=== PATIENT | male | born 1995 | race African-American/Black ===

== ENCOUNTER 2020-03-26 15:09 | Emergency (ER) | payer OTHER ==
--- NOTE | 2020-03-26 15:38 | PDOC ---
Rapid Medical Evaluation Time Seen by Provider: 03/26/20 15:21 Medical Evaluation: 03/26/20 15:31 I performed a brief in-person evaluation of this patient. Pt is a 24 y/o male with complaint of left sided body numbness after waking up this morning. He had an endoscopy yesterday and woke up feeling like this today. He also developed b/l subconjunctival hemorrhages. He was seen at [facility] yesterday and was given eye drops for subconjunctival hemorrhages. Pt states he feels like he is off balance. He has tingling in his L hand and foot. He had a painful headache this morning upon waking. Took Tylenol which resolved headache but it came right back. Pertinent physical exam findings: b/l subconjunctival hemorrhages appreciated. No ataxia, no slurred speech, no facial droop. Strength 5/5 b/l UE. I have ordered the following: stroke protocol Patient to proceed to ED for further evaluation. Discharge Disposition - Diagnosis Numbness and tingling - Referrals - Patient Instructions - Post Discharge Activity
[2020-03-26 15:42] VITALS: BMI 39.3
[2020-03-26] MEDS ORDERED: SODIUM CHLORIDE 1,000 ML IV SCH (15:45)
--- OUTSIDE RECORDS SUMMARY | 2020-03-26 15:51 | XMS ---
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 Cente r in Serum or Plasma </content>90 IU/L<content styleCode="Italic s"> (38-126 IU/L)</content> Albumin 3.5-5.0 <content [facility] [Mass/volume] in styleCode="Bold"> Flaco hs Serum or Plasma Albumin Medical </content>4.3 Center G/DL<content styleCode="Italic s"> (3.5-5.0 G/DL)</content> ID Date Data Source HematologyRou.[id number] 03/10/2020 10:45:00 AM EDT Jose Luis [facility] 0400 Name Value Range Interpretation Description Data Sup porting Code Source(s) Document(s ) Hematocrit 41.0-53. <content [facility] [Volume 0 styleCode="Sherron Mauros Fraction] of ">Hematocrit Medical Blood by </content>45.5 Center Automated count %<content styleCode="Ital ics"> (41.0-53.0 %)</content> Hemoglobin 13.5-17. <content [facility] [Mass/volume] in 5 styleCode="Bold Kath Blood ">Hemoglobin Medical </content>14.5 Center G/DL<content styleCode="Ital ics"> (13.5-17.5 G/DL)</content> Leukocytes 4.4-11.0 <content [facility] [#/volume] in styleCode="Bold Kath Blood by ">White Blood Medical Automated count Cell Count Center </content>5.48 KCUMM<content styleCode="Ital ics"> (4.4-11.0 KCUMM)</content > Erythrocytes 4.4-5.9 <content [facility] [#/volume] in styleCode="Bold Kath Blood by ">Red Blood Medical Automated count Cell Count Center </content>5.67 MCUMM<content styleCode="Ital ics"> (4.4-5.9 MCUMM)</content > Erythrocyte 11.5-14. <content [facility] distribution 5 styleCode="Sherron [facility] width [Ratio] by ">Red Cell Medical Automated count Distribution Center Width </content>13.4 %<content styleCode="Ital ics"> (11.5-14.5 %)</content> Erythrocyte mean 32.0-37. Below low normal <content [facility] corpuscular 0 styleCode="Bold Kath hemoglobin ">Mean Corpus. Medical concentration Hgb Center [Mass/volume] by Concentration Automated count (MCHC) </content>31.9 G/DL L<content styleCode="Ital ics"> (32.0-37.0 G/DL)</content> Erythrocyte mean 26.0-34. Below low normal <content [facility] corpuscular 0 styleCode="Bold Kath hemoglobin ">Mean Medical [Entitic mass] Corposcular Center by Automated Hemoglobin count </content>25.6 PG L<content styleCode="Ital ics"> (26.0-34.0 PG)</content> Erythrocyte mean 80.0-100 <content [facility] corpuscular .0 styleCode="Bold Kath volume [Entitic ">Mean Medical volume] by Corpuscular Center Automated count Volume </content>80.2 FL<content styleCode="Ital ics"> (80.0-100.0 FL)</content> Platelets 130-400 <content [facility] [#/volume] in styleCode="Bold Kath Blood by ">Platelet Medical Automated count Count Center </content>218 KCUMM<content styleCode="Ital ics"> (130-400 KCUMM)</content > UNK 1.6-7.3 <content [facility] styleCode="Bold Kath ">Neutrophil Medical Count Center </content>2.82 KCUMM<content styleCode="Ital ics"> (1.6-7.3 KCUMM)</content > UNK 1.0-4.8 <content [facility] styleCode="Bold Kath ">Lymphocyte Medical Count Center </content>2.04 KCUMM<content styleCode="Ital ics"> (1.0-4.8 KCUMM)</content > Platelet mean 8.0-11.0 <content [facility] volume [Entitic styleCode="Bold Kath volume] in Blood ">Mean Platelet Medical by Automated Volume Center count </content>10.2 FL<content styleCode="Ital ics"> (8.0-11.0 FL)</content> Lymphocytes 24.0-44. <content [facility] [#/volume] in 0 styleCode="Bold Kath Blood by ">Lymphocyte Medical Automated count </content>37.2 Center %<content styleCode="Ital ics"> (24.0-44.0 %)</content> Neutrophils 36-66 <content [facility] [#/volume] in styleCode="Bold Kath Blood by ">Neutrophil Medical Automated count </content>51.6 Center %<content styleCode="Ital ics"> (36-66 %)</content> Eosinophils 0-5.0 <content [facility] [#/volume] in styleCode="Bold Kath Blood by ">Eosinophil Medical Automated count </content>2.0 Center %<content styleCode="Ital ics"> (0-5.0 %)</content> UNK 0.2-0.9 <content [facility] styleCode="Bold Kath ">Monocyte Medical Count Center </content>0.45 KCUMM<content styleCode="Ital ics"> (0.2-0.9 KCUMM)</content > Monocytes 3.0-10.0 <content [facility] [#/volume] in styleCode="Bold Kath Blood by ">Monocyte Medical Automated count </content>8.2 Center %<content styleCode="Ital ics"> (3.0-10.0 %)</content> UNK 0.0-0.6 <content [facility] styleCode="Bold Kath ">Eosinophil Medical Count Center </content>0.11 KCUMM<content styleCode="Ital ics"> (0.0-0.6 KCUMM)</content > UNK 0 <content [facility] styleCode="Bold Kath ">Nucleated Red Medical Blood Cell Center </content>0.0 /100<content styleCode="Ital ics"> (0 /100)</content> Basophils 0.0-1.0 <content [facility] [#/volume] in styleCode="Bold Kath Blood by ">Basophil Medical Automated count </content>0.5 Center %<content styleCode="Ital ics"> (0.0-1.0 %)</content> UNK 0-0.1 <content [facility] styleCode="Bold Kath ">Immature Medical Granulocyte Center Count </content>0.03 KCUMM<content styleCode="Ital ics"> (0-0.1 KCUMM)</content > UNK 0.0-0.3 <content [facility] styleCode="Bold Kath ">Basophil Medical Count Center </content>0.03 KCUMM<content styleCode="Ital ics"> (0.0-0.3 KCUMM)</content > UNK 0.0 <content [facility] styleCode="Bold Kath ">Nucleated Red Medical Blood Cell Center Count </content>0.00 KCUMM<content styleCode="Ital ics"> (0.0 KCUMM)</content > UNK < 1 <content [facility] styleCode="Bold Kath ">Immature Medical Granulocyte Center Ratio </content>0.5 %<content styleCode="Ital ics"> (< 1 %)</content> ID Date Data Source GFR(Creatinine).[id number] 03/10/2020 10:45:00 AM EDT [facility] 0-0400 Name Value Range Interpretation Code Description Data Aury rce(s) Supporting Document(s ) UNK > 60 <content [facility] styleCode="Bold"> Medical Cent er EGFR </content>95 GFR<content styleCode="Italic s"> (> 60 GFR)</content> ID Date Data Source CHMROUTINECCDA.[id number] 03/10/2020 10:45:00 AM EDT [facility] -0400 Name Value Range Interpretation Description Data Sup porting Code Source(s) Document(s ) UNK >= 1.0 <content [facility] styleCode="Bold Medical ">AG Ratio Center </content>1.4 <content styleCode="Ital ics"> (>= 1.0 )</content> UNK 30-110 <content [facility] styleCode="Bold Medical ">Amylase Center </content>68 IU/L<content styleCode="Ital ics"> (30-110 IU/L)</content> Lipase 23-300 <content [facility] [Enzymatic styleCode="Bold Medical activity/vo ">Lipase Center lume] in </content>44 Serum or IU/L<content Plasma styleCode="Ital ics"> (23-300 IU/L)</content> UNK 2.3-3.5 <content [facility] styleCode="Bold Medical ">Globulin Center </content>3.0 G/DL<content styleCode="Ital ics"> (2.3-3.5 G/DL)</content> Protein 6.3-8.2 <content [facility] [Mass/volum styleCode="Bold Medical e] in Serum ">Total Protein Center or Plasma </content>7.3 G/DL<content styleCode="Ital ics"> (6.3-8.2 G/DL)</content> ID Date Data Source [facility].[id number] 03/10/2020 10:45:00 AM EDT [facility] Name Value Range Interpretation Description Data Sup porting Code Source(s) Document(s ) Sodium 137-145 <content [facility] [Moles/volume] in styleCode="Bold"> Tho phs Serum or Plasma Sodium Medical </content>139 Center MEQ/L<content styleCode="Italic s"> (137-145 MEQ/L)</content> Carbon dioxide, 22-30 <content [facility] total styleCode="Bold"> Kath [Moles/volume] in Carbon Dioxide Medical Serum or Plasma </content>28 Center MEQ/L<content styleCode="Italic s"> (22-30 MEQ/L)</content> Potassium 3.5-5.3 <content [facility] [Moles/volume] in styleCode="Bold"> Tho phs Serum or Plasma Potassium Medical </content>4.2 Center MEQ/L<content styleCode="Italic s"> (3.5-5.3 MEQ/L)</content> Chloride 98-107 <content [facility] [Moles/volume] in styleCode="Bold"> Tho phs Serum or Plasma Chloride Medical </content>105 Center MEQ/L<content styleCode="Italic s"> (98-107 MEQ/L)</content> UNK 9-20 <content [facility] styleCode="Bold"> Kath BUN </content>13 Medical MG/DL<content Center styleCode="Italic s"> (9-20 MG/DL)</content> Glucose 74-106 Above high <content [facility] [Mass/volume] in normal styleCode="Bold"> Flaco hs Serum or Plasma Glucose Medical </content>107 Center MG/DL H<content styleCode="Italic s"> (74-106 MG/DL)</content> Creatinine 0.5-1.3 <content [facility] [Mass/volume] in styleCode="Bold"> Flaco hs Serum or Plasma Creatinine Medical </content>1.2 Center MG/DL<content styleCode="Italic s"> (0.5-1.3 MG/DL)</content> Calcium 8.4-10. <content [facility] [Mass/volume] in 2 styleCode="Bold"> Flaco hs Serum or Plasma Calcium Medical </content>9.3 Center MG/DL<content styleCode="Italic s"> (8.4-10.2 MG/DL)</content> Aspartate 17-59 <content [facility] aminotransferase styleCode="Bold"> Flaco hs [Enzymatic Aspartate Medical activity/volume] Aminotransferase Center in Serum or Plasma (AST) </content>26 IU/L<content styleCode="Italic s"> (17-59 IU/L)</content> UNK > 60 <content [facility] styleCode="Bold"> Kath EGFR </content>95 Medical GFR<content Center styleCode="Italic s"> (> 60 GFR)</content> Alkaline 38-126 <content [facility] phosphatase styleCode="Bold"> Kath [Enzymatic Alkaline Medical activity/volume] Phosphatase (ALP) Cente r in Serum or Plasma </content>90 IU/L<content styleCode="Italic s"> (38-126 IU/L)</content> Albumin 3.5-5.0 <content [facility] [Mass/volume] in styleCode="Bold"> Flaco hs Serum or Plasma Albumin Medical </content>4.3 Center G/DL<content styleCode="Italic s"> (3.5-5.0 G/DL)</content> Alanine 7-50 <content [facility] aminotransferase styleCode="Bold"> Flaco hs [Enzymatic Alanine Medical activity/volume] Aminotransferase Center in Serum or Plasma (ALT) </content>34 IU/L<content styleCode="Italic s"> (7-50 IU/L)</content> Bilirubin.total 0.2-1.3 <content [facility] [Mass/volume] in styleCode="Bold"> Flaco hs Serum or Plasma Bilirubin Total Medical </content>0.4 Center MG/DL<content styleCode="Italic s"> (0.2-1.3 MG/DL)</content> ID Date Data Source CHMROUTINECCDA.[id number] 03/04/2020 03:34:00 PM EDT [facility] -0400 Name Value Range Interpretation Description Data Sup porting Code Source(s) Document(s ) Lipase 23-300 <content [facility] [Enzymatic styleCode="Bold Medical activity/vo ">Lipase Center lume] in </content>51 Serum or IU/L<content Plasma styleCode="Ital ics"> (23-300 IU/L)</content> UNK 30-110 <content [facility] styleCode="Bold Medical ">Amylase Center </content>68 IU/L<content styleCode="Ital ics"> (30-110 IU/L)</content> ID Date Data Source Liver 01/25/2020 12:20:00 PM EDT [facility] Profile.[id number] Name Value Range Interpretation Description Data Sup porting Code Source(s) Document(s ) Aspartate 17-59 <content [facility] aminotransferase styleCode="Bold"> Flaco hs [Enzymatic Aspartate Medical activity/volume] Aminotransferase Center in Serum or Plasma (AST) </content>25 IU/L<content styleCode="Italic s"> (17-59 IU/L)</content> Albumin 3.5-5.0 <content [facility] [Mass/volume] in styleCode="Bold"> Flaco hs Serum or Plasma Albumin Medical </content>4.1 Center G/DL<content styleCode="Italic s"> (3.5-5.0 G/DL)</content> Bilirubin.total 0.2-1.3 <content [facility] [Mass/volume] in styleCode="Bold"> Flaco hs Serum or Plasma Bilirubin Total Medical </content>0.3 Center MG/DL<content styleCode="Italic s"> (0.2-1.3 MG/DL)</content> Alkaline 38-126 <content [facility] phosphatase styleCode="Bold"> Kath [Enzymatic Alkaline Medical activity/volume] Phosphatase (ALP) Cente r in Serum or Plasma </content>87 IU/L<content styleCode="Italic s"> (38-126 IU/L)</content> Alanine 7-50 <content [facility] aminotransferase styleCode="Bold"> Flaco hs [Enzymatic Alanine Medical activity/volume] Aminotransferase Center in Serum or Plasma (ALT) </content>40 IU/L<content styleCode="Italic s"> (7-50 IU/L)</content> ID Date Data Source LIPID.[id number] 01/25/2020 12:20:00 PM EDT [facility] Name Value Range Interpretation Description Data Sup porting Code Source(s) Document(s ) Cholesterol -<200 Above high normal <content [facility] [Mass/volume] in styleCode="Can Kath Serum or Plasma d">Cholesterol Medical </content>224 Center MG/DL H<content styleCode="Petra lics"> (-<200 MG/DL)</conten t> Triglyceride < 150 Above high normal <content [facility] [Mass/volume] in styleCode="Can Kath Serum or Plasma d">Triglycerid Medical Center </content>160 MG/DL H<content styleCode="Petra lics"> (< 150 MG/DL)</conten t> UNK < 100 Above high normal <content [facility] styleCode="Can Kath d">LDL-Cholest Medical carol Center </content>158 MG/DL H<content styleCode="Petra lics"> (< 100 MG/DL)</conten t> UNK > 60 Below low normal <content [facility] styleCode="Can Kath d">HDL- Medical Cholesterol Center </content>34 MG/DL L<content styleCode="Petra lics"> (> 60 MG/DL)</conten t> ID Date Data Source HematologyRou.[id number] 01/25/2020 12:20:00 PM [facility] Name Value Range Interpretation Description Data Sup porting Code Source(s) Document(s ) Hemoglobin 13.5-17. <content [facility] [Mass/volume] in 5 styleCode="Bold Kath Blood ">Hemoglobin Medical </content>14.2 Center G/DL<content styleCode="Ital ics"> (13.5-17.5 G/DL)</content> Erythrocytes 4.4-5.9 <content [facility] [#/volume] in styleCode="Bold Kath Blood by ">Red Blood Medical Automated count Cell Count Center </content>5.46 MCUMM<content styleCode="Ital ics"> (4.4-5.9 MCUMM)</content > Hematocrit 41.0-53. <content [facility] [Volume 0 styleCode="Bold Kath Fraction] of ">Hematocrit Medical Blood by </content>44.1 Center Automated count %<content styleCode="Ital ics"> (41.0-53.0 %)</content> Leukocytes 4.4-11.0 <content [facility] [#/volume] in styleCode="Bold Kath Blood by ">White Blood Medical Automated count Cell Count Center </content>6.68 KCUMM<content styleCode="Ital ics"> (4.4-11.0 KCUMM)</content > Erythrocyte mean 26.0-34. <content [facility] corpuscular 0 styleCode="Bold Kath hemoglobin ">Mean Medical [Entitic mass] Corposcular Center by Automated Hemoglobin count </content>26.0 PG<content styleCode="Ital ics"> (26.0-34.0 PG)</content> Erythrocyte 11.5-14. <content [facility] distribution 5 styleCode="Bold Kath width [Ratio] by ">Red Cell Medical Automated count Distribution Center Width </content>13.4 %<content styleCode="Ital ics"> (11.5-14.5 %)</content> Erythrocyte mean 32.0-37. <content [facility] corpuscular 0 styleCode="Bold Kath hemoglobin ">Mean Corpus. Medical concentration Hgb Center [Mass/volume] by Concentration Automated count (MCHC) </content>32.2 G/DL<content styleCode="Ital ics"> (32.0-37.0 G/DL)</content> Erythrocyte mean 80.0-100 <content [facility] corpuscular .0 styleCode="Bold Kath volume [Entitic ">Mean Medical volume] by Corpuscular Center Automated count Volume </content>80.8 FL<content styleCode="Ital ics"> (80.0-100.0 FL)</content> Neutrophils 36-66 <content [facility] [#/volume] in styleCode="Bold Kath Blood by ">Neutrophil Medical Automated count </content>56.7 Center %<content styleCode="Ital ics"> (36-66 %)</content> UNK 1.6-7.3 <content [facility] styleCode="Bold Kath ">Neutrophil Medical Count Center </content>3.78 KCUMM<content styleCode="Ital ics"> (1.6-7.3 KCUMM)</content > Platelets 130-400 <content [facility] [#/volume] in styleCode="Bold Kath Blood by ">Platelet Medical Automated count Count Center </content>241 KCUMM<content styleCode="Ital ics"> (130-400 KCUMM)</content > Platelet mean 8.0-11.0 <content [facility] volume [Entitic styleCode="Bold Kath volume] in Blood ">Mean Platelet Medical by Automated Volume Center count </content>10.9 FL<content styleCode="Ital ics"> (8.0-11.0 FL)</content> UNK 1.0-4.8 <content [facility] styleCode="Bold Kath ">Lymphocyte Medical Count Center </content>1.92 KCUMM<content styleCode="Ital ics"> (1.0-4.8 KCUMM)</content > Lymphocytes 24.0-44. <content [facility] [#/volume] in 0 styleCode="Bold Kath Blood by ">Lymphocyte Medical Automated count </content>28.7 Center %<content styleCode="Ital ics"> (24.0-44.0 %)</content> Monocytes 3.0-10.0 Above high <content [facility] [#/volume] in normal styleCode="Bold Kath Blood by ">Monocyte Medical Automated count </content>11.4 Center % H<content styleCode="Ital ics"> (3.0-10.0 %)</content> UNK 0.2-0.9 <content [facility] styleCode="Bold Kath ">Monocyte Medical Count Center </content>0.76 KCUMM<content styleCode="Ital ics"> (0.2-0.9 KCUMM)</content > Eosinophils 0-5.0 <content [facility] [#/volume] in styleCode="Bold Kath Blood by ">Eosinophil Medical Automated count </content>2.4 Center %<content styleCode="Ital ics"> (0-5.0 %)</content> UNK 0.0-0.6 <content [facility] styleCode="Bold Kath ">Eosinophil Medical Count Center </content>0.16 KCUMM<content styleCode="Ital ics"> (0.0-0.6 KCUMM)</content > Basophils 0.0-1.0 <content [facility] [#/volume] in styleCode="Bold Kath Blood by ">Basophil Medical Automated count </content>0.4 Center %<content styleCode="Ital ics"> (0.0-1.0 %)</content> UNK 0.0-0.3 <content [facility] styleCode="Bold Kath ">Basophil Medical Count Center </content>0.03 KCUMM<content styleCode="Ital ics"> (0.0-0.3 KCUMM)</content > UNK 0 <content [facility] styleCode="Bold Kath ">Nucleated Red Medical Blood Cell Center </content>0.0 /100<content styleCode="Ital ics"> (0 /100)</content> UNK 0.0 <content [facility] styleCode="Bold Kath ">Nucleated Red Medical Blood Cell Center Count </content>0.00 KCUMM<content styleCode="Ital ics"> (0.0 KCUMM)</content > UNK < 1 <content [facility] styleCode="Bold Kath ">Immature Medical Granulocyte Center Ratio </content>0.4 %<content styleCode="Ital ics"> (< 1 %)</content> UNK 0-0.1 <content [facility] styleCode="Bold Kath ">Immature Medical Granulocyte Center Count </content>0.03 KCUMM<content styleCode="Ital ics"> (0-0.1 KCUMM)</content > ID Date Data Source GFR(Creatinine).[id number] 01/25/2020 12:20:00 PM EDT [facility] 0-0400 Name Value Range Interpretation Code Description Data Aury rce(s) Supporting Document(s ) UNK > 60 <content [facility] styleCode="Bold"> Medical Cent er EGFR </content>95 GFR<content styleCode="Italic s"> (> 60 GFR)</content> ID Date Data Source CHMROUTJHOANCCDA.[id number] 01/25/2020 12:20:00 PM EDT [facility] -0400 Name Value Range Interpretation Description Data Sup porting Code Source(s) Document(s ) UNK >= 1.0 <content [facility] styleCode="Bold Medical ">AG Ratio Center </content>1.2 <content styleCode="Ital ics"> (>= 1.0 )</content> Protein 6.3-8.2 <content [facility] [Mass/volum styleCode="Bold Medical e] in Serum ">Total Protein Center or Plasma </content>7.4 G/DL<content styleCode="Ital ics"> (6.3-8.2 G/DL)</content> UNK 4.2-5.8 <content [facility] styleCode="Bold Medical ">Hemoglobin Center A1C </content>5.8 %<content styleCode="Ital ics"> (4.2-5.8 %)</content> UNK 2.3-3.5 <content [facility] styleCode="Bold Medical ">Globulin Center </content>3.3 G/DL<content styleCode="Ital ics"> (2.3-3.5 G/DL)</content> ID Date Data Source BMP.[id number] 01/25/2020 12:20:00 PM EDT [facility] Name Value Range Interpretation Description Data Sup porting Code Source(s) Document(s ) Chloride 98-107 <content [facility] [Moles/volume] in styleCode="Bold"> Tho [facility] Serum or Plasma Chloride Medical </content>105 Center MEQ/L<content styleCode="Italic s"> (98-107 MEQ/L)</content> Potassium 3.5-5.3 <content [facility] [Moles/volume] in styleCode="Bold"> Tho [facility] Serum or Plasma Potassium Medical </content>4.3 Center MEQ/L<content styleCode="Italic s"> (3.5-5.3 MEQ/L)</content> Sodium 137-145 <content [facility] [Moles/volume] in styleCode="Bold"> Tho [facility] Serum or Plasma Sodium Medical </content>138 Center MEQ/L<content styleCode="Italic s"> (137-145 MEQ/L)</content> Carbon dioxide, 22-30 <content [facility] total styleCode="Bold"> Kath [Moles/volume] in Carbon Dioxide Medical Serum or Plasma </content>27 Center MEQ/L<content styleCode="Italic s"> (22-30 MEQ/L)</content> Glucose 74-106 <content [facility] [Mass/volume] in styleCode="Bold"> Flaco hs Serum or Plasma Glucose Medical </content>100 Center MG/DL<content styleCode="Italic s"> (74-106 MG/DL)</content> Creatinine 0.5-1.3 <content [facility] [Mass/volume] in styleCode="Bold"> Flaco hs Serum or Plasma Creatinine Medical </content>1.2 Center MG/DL<content styleCode="Italic s"> (0.5-1.3 MG/DL)</content> UNK 9-20 <content [facility] styleCode="Bold"> Kath BUN </content>17 Medical MG/DL<content Center styleCode="Italic s"> (9-20 MG/DL)</content> Aspartate 17-59 <content [facility] aminotransferase styleCode="Bold"> Flaco hs [Enzymatic Aspartate Medical activity/volume] Aminotransferase Center in Serum or Plasma (AST) </content>25 IU/L<content styleCode="Italic s"> (17-59 IU/L)</content> UNK > 60 <content [facility] styleCode="Bold"> [facility] EGFR </content>95 Medical GFR<content Center styleCode="Italic s"> (> 60 GFR)</content> Calcium 8.4-10. <content [facility] [Mass/volume] in 2 styleCode="Bold"> Flaco hs Serum or Plasma Calcium Medical </content>9.6 Center MG/DL<content styleCode="Italic s"> (8.4-10.2 MG/DL)</content> Alanine 7-50 <content [facility] aminotransferase styleCode="Bold"> Flaco hs [Enzymatic Alanine Medical activity/volume] Aminotransferase Center in Serum or Plasma (ALT) </content>40 IU/L<content styleCode="Italic s"> (7-50 IU/L)</content> Alkaline 38-126 <content Saint phosphatase styleCode="Bold"> [facility] [Enzymatic Alkaline Medical activity/volume] Phosphatase (ALP) Cente r in Serum or Plasma </content>87 IU/L<content styleCode="Italic s"> (38-126 IU/L)</content> Bilirubin.total 0.2-1.3 <content [facility] [Mass/volume] in styleCode="Bold"> Flaco hs Serum or Plasma Bilirubin Total Medical </content>0.3 Center MG/DL<content styleCode="Italic s"> (0.2-1.3 MG/DL)</content> Albumin 3.5-5.0 <content [facility] [Mass/volume] in styleCode="Bold"> Flaco hs Serum or Plasma Albumin Medical </content>4.1 Center G/DL<content styleCode="Italic s"> (3.5-5.0 G/DL)</content> ID Date Data Source Urinalysis.[id number] 01/18/2020 09:05:00 PM EDT Jose Luis nt [facility] 0 Name Value Range Interpretation Description Data Sup porting Code Source(s) Document(s ) Color of Urine YELLOW <content Saint styleCode="Can Kath d">Color, Medical Urine Center </content>YELL OW <content styleCode="Petra lics"> (YELLOW )</content> Specific 1.015-1.02 <content Saint gravity of 5 styleCode="Can [place] Urine by Test d">Urine Medical strip Specific Center [place] </content>1.02 5 <content styleCode="Petra lics"> (1.015-1.025 )</content> UNK CLEAR <content Saint styleCode="Can Kath d">Urine Medical Clarity Center </content>SHAHEEN R <content styleCode="Petra lics"> (CLEAR )</content> UNK NEGATIVE <content Saint styleCode="Can Kath d">Urine Medical Bilirubin Center </content>NEGA TIVE <content styleCode="Petra lics"> (NEGATIVE )</content> Ketones NEGATIVE <content [facility] [Mass/volume] styleCode="Can Kath in Urine by d">Urine Medical Test strip Ketone Center </content>NEGA TIVE MG/DL<content styleCode="Petra lics"> (NEGATIVE MG/DL)</conten t> Glucose NEGATIVE <content [facility] [Mass/volume] styleCode="Can Kath in Urine by d">Urine Medical Test strip Glucose Center </content>NEGA TIVE MG/DL<content styleCode="Petra lics"> (NEGATIVE MG/DL)</conten t> Urobilinogen 0.2-1.0 <content Saint [Units/volume] styleCode="Can Kath in Urine by d">Urine Medical Test strip Urobilinogen Center </content>0.2 MG/DL<content styleCode="Petra lics"> (0.2-1.0 MG/DL)</conten t> pH of Urine by 4.5-8.0 <content Saint Test strip styleCode="Can Kath d">Urine pH Medical </content>7.0 Center <content styleCode="Petra lics"> (4.5-8.0 )</content> Hemoglobin NEGATIVE <content Saint [Presence] in styleCode="Can [place] Urine by Test d">Urine Blood Medical strip </content>NEGA Center TIVE <content styleCode="Petra lics"> (NEGATIVE )</content> Protein NEGATIVE <content Saint [Mass/volume] styleCode="Can [place] in Urine by d">Urine Medical Test strip Protein Center </content>NEGA TIVE MG/DL<content styleCode="Petra lics"> (NEGATIVE MG/DL)</conten t> Nitrite NEGATIVE <content Saint [Presence] in styleCode="Can [place] Urine by Test d">Urine Medical strip Nitrite Center </content>NEGA TIVE <content styleCode="Petra lics"> (NEGATIVE )</content> Leukocyte NEGATIVE <content [facility] esterase styleCode="Can [place] [Presence] in d">Urine Medical Urine by Test Leukocyte Center strip </content>NEGA TIVE <content styleCode="Petra lics"> (NEGATIVE )</content> ID Date Data Source HematologyRou.[id number] 01/18/2020 09:05:00 PM EDT [facility] 0400 Name Value Range Interpretation Description Data Sup porting Code Source(s) Document(s ) Leukocytes 4.4-11.0 <content Saint [#/volume] in styleCode="Bold Kath Blood by ">White Blood Medical Automated count Cell Count Center </content>5.77 KCUMM<content styleCode="Ital ics"> (4.4-11.0 KCUMM)</content > Erythrocytes 4.4-5.9 <content Saint [#/volume] in styleCode="Bold Kath Blood by ">Red Blood Medical Automated count Cell Count Center </content>5.19 MCUMM<content styleCode="Ital ics"> (4.4-5.9 MCUMM)</content > Erythrocyte mean 32.0-37. <content Saint corpuscular 0 styleCode="Bold [facility] hemoglobin ">Mean Corpus. Medical concentration Hgb Center [Mass/volume] by Concentration Automated count (MCHC) </content>32.8 G/DL<content styleCode="Ital ics"> (32.0-37.0 G/DL)</content> Erythrocyte mean 80.0-100 <content Saint corpuscular .0 styleCode="Bold Kath volume [Entitic ">Mean Medical volume] by Corpuscular Center Automated count Volume </content>81.1 FL<content styleCode="Ital ics"> (80.0-100.0 FL)</content> Erythrocyte mean 26.0-34. <content [facility] corpuscular 0 styleCode="Bold Kath hemoglobin ">Mean Medical [Entitic mass] Corposcular Center by Automated Hemoglobin count </content>26.6 PG<content styleCode="Ital ics"> (26.0-34.0 PG)</content> Hematocrit 41.0-53. <content Saint [Volume 0 styleCode="Bold Kath Fraction] of ">Hematocrit Medical Blood by </content>42.1 Center Automated count %<content styleCode="Ital ics"> (41.0-53.0 %)</content> Hemoglobin 13.5-17. <content [facility] [Mass/volume] in 5 styleCode="Bold Kath Blood ">Hemoglobin Medical </content>13.8 Center G/DL<content styleCode="Ital ics"> (13.5-17.5 G/DL)</content> UNK 0.0 <content Saint styleCode="Bold Kath ">Nucleated Red Medical Blood Cell Center Count </content>0.00 KCUMM<content styleCode="Ital ics"> (0.0 KCUMM)</content > Platelet mean 8.0-11.0 <content Saint volume [Entitic styleCode="Bold Kath volume] in Blood ">Mean Platelet Medical by Automated Volume Center count </content>10.5 FL<content styleCode="Ital ics"> (8.0-11.0 FL)</content> Erythrocyte 11.5-14. <content [facility] distribution 5 styleCode="Bold Kath width [Ratio] by ">Red Cell Medical Automated count Distribution Center Width </content>13.2 %<content styleCode="Ital ics"> (11.5-14.5 %)</content> UNK 0 <content Saint styleCode="Bold Kath ">Nucleated Red Medical Blood Cell Center </content>0.0 /100<content styleCode="Ital ics"> (0 /100)</content> Platelets 130-400 <content Saint [#/volume] in styleCode="Bold Kath Blood by ">Platelet Medical Automated count Count Center </content>225 KCUMM<content styleCode="Ital ics"> (130-400 KCUMM)</content > ID Date Data Source GFR(Creatinine).[id number] 01/18/2020 09:05:00 PM EDT [facility] 0-0400 Name Value Range Interpretation Code Description Data Aury rce(s) Supporting Document(s ) UNK > 60 <content [facility] styleCode="Bold"> Medical Cent er EGFR </content>95 GFR<content styleCode="Italic s"> (> 60 GFR)</content> ID Date Data Source CardiacMarkers.[id number] 01/18/2020 09:05:00 PM EDT [facility] -0400 Name Value Range Interpretation Description Data Sup porting Code Source(s) Document(s ) Troponin < 0.034 <content Saint I.cardiac styleCode="Bold Kath [Mass/volume ">Troponin I Medical ] in Serum </content>< Center or Plasma 0.012 NG/ML<content styleCode="Ital ics"> (< 0.034 NG/ML)</content > ID Date Data Source BMP.[id number] 01/18/2020 09:05:00 PM EDT [facility] Name Value Range Interpretation Description Data Sup porting Code Source(s) Document(s ) Chloride 98-107 <content Saint [Moles/volume] styleCode="Can Kath in Serum or d">Chloride Medical Plasma </content>106 Center MEQ/L<content styleCode="Petra lics"> (98-107 MEQ/L)</conten t> Potassium 3.5-5.3 <content [facility] [Moles/volume] styleCode="Can Kath in Serum or d">Potassium Medical Plasma </content>4.3 Center MEQ/L<content styleCode="Petra lics"> (3.5-5.3 MEQ/L)</conten t> Sodium 137-145 <content [facility] [Moles/volume] styleCode="Can Kath in Serum or d">Sodium Medical Plasma </content>137 Center MEQ/L<content styleCode="Petra lics"> (137-145 MEQ/L)</conten t> UNK 9-20 <content Saint styleCode="Can Kath d">BUN Medical </content>17 Center MG/DL<content styleCode="Petra lics"> (9-20 MG/DL)</conten t> Creatinine 0.5-1.3 <content [facility] [Mass/volume] styleCode="Can Kath in Serum or d">Creatinine Medical Plasma </content>1.2 Center MG/DL<content styleCode="Petra lics"> (0.5-1.3 MG/DL)</conten t> Carbon 22-30 <content Saint dioxide, total styleCode="Can Kath [Moles/volume] d">Carbon Medical in Serum or Dioxide Center Plasma </content>25 MEQ/L<content styleCode="Petra lics"> (22-30 MEQ/L)</conten t> UNK > 60 <content [facility] styleCode="Can Kath d">EGFR Medical </content>95 Center GFR<content styleCode="Petra lics"> (> 60 GFR)</content> Glucose 74-106 <content [facility] [Mass/volume] styleCode="Can Kath in Serum or d">Glucose Medical Plasma </content>106 Center MG/DL<content styleCode="Petra lics"> (74-106 MG/DL)</conten t> Calcium 8.4-10.2 <content [facility] [Mass/volume] styleCode="Can Kath in Serum or d">Calcium Medical Plasma </content>9.3 Center MG/DL<content styleCode="Petra lics"> (8.4-10.2 MG/DL)</conten t> ID Date Data Source Urinalysis.[id number] 11/28/2019 02:26:00 AM EDT [facility] 0 Name Value Range Interpretation Description Data Sup porting Code Source(s) Document(s ) Color of Urine YELLOW <content Saint styleCode="Can [place] d">Color, Medical Urine Center </content>YELL OW <content styleCode="Petra lics"> (YELLOW )</content> UNK CLEAR <content Saint styleCode="Can [place] d">Urine Medical Clarity Center </content>SHAHEEN R <content styleCode="Petra lics"> (CLEAR )</content> Glucose NEGATIVE <content Saint [Mass/volume] styleCode="Can [place] in Urine by d">Urine Medical Test strip Glucose Center </content>NEGA TIVE MG/DL<content styleCode="Petra lics"> (NEGATIVE MG/DL)</conten t> pH of Urine by 4.5-8.0 <content Saint Test strip styleCode="Can [place] d">Urine pH Medical </content>8.0 Center <content styleCode="Petra lics"> (4.5-8.0 )</content> Specific 1.015-1.02 <content [facility] gravity of 5 styleCode="Can [place] Urine by Test d">Urine Medical strip Specific Center [place] </content>1.02 0 <content styleCode="Petra lics"> (1.015-1.025 )</content> Hemoglobin NEGATIVE <content Saint [Presence] in styleCode="Can [place] Urine by Test d">Urine Blood Medical strip </content>NEGA Center TIVE <content styleCode="Petra lics"> (NEGATIVE )</content> UNK NEGATIVE <content Saint styleCode="Can [place] d">Urine Medical Bilirubin Center </content>NEGA TIVE <content styleCode="Petra lics"> (NEGATIVE )</content> Ketones NEGATIVE <content Saint [Mass/volume] styleCode="Can [place] in Urine by d">Urine Medical Test strip Ketone Center </content>NEGA TIVE MG/DL<content styleCode="Petra lics"> (NEGATIVE MG/DL)</conten t> Leukocyte NEGATIVE <content [facility] esterase styleCode="Can [place] [Presence] in d">Urine Medical Urine by Test Leukocyte Center strip </content>NEGA TIVE <content styleCode="Petra lics"> (NEGATIVE )</content> Urobilinogen 0.2-1.0 <content Saint [Units/volume] styleCode="Can Kath in Urine by d">Urine Medical Test strip Urobilinogen Center </content>0.2 MG/DL<content styleCode="Petra lics"> (0.2-1.0 MG/DL)</conten t> Nitrite NEGATIVE <content [facility] [Presence] in styleCode="Can Kath Urine by Test d">Urine Medical strip Nitrite Center </content>NEGA TIVE <content styleCode="Petra lics"> (NEGATIVE )</content> Protein NEGATIVE <content Saint [Mass/volume] styleCode="Can Kath in Urine by d">Urine Medical Test strip Protein Center </content>NEGA TIVE MG/DL<content styleCode="Petra lics"> (NEGATIVE MG/DL)</conten t> ID Date Data Source HematologyRou.[id number] 11/28/2019 02:26:00 AM EDT Jose Luis [facility] 0400 Name Value Range Interpretation Description Data Sup porting Code Source(s) Document(s ) Hemoglobin 13.5-17. <content Saint [Mass/volume] in 5 styleCode="Bold Kath Blood ">Hemoglobin Medical </content>14.3 Center G/DL<content styleCode="Ital ics"> (13.5-17.5 G/DL)</content> Leukocytes 4.4-11.0 <content Saint [#/volume] in styleCode="Bold Kath Blood by ">White Blood Medical Automated count Cell Count Center </content>6.93 KCUMM<content styleCode="Ital ics"> (4.4-11.0 KCUMM)</content > Hematocrit 41.0-53. <content Saint [Volume 0 styleCode="Bold [facility] Fraction] of ">Hematocrit Medical Blood by </content>43.7 Center Automated count %<content styleCode="Ital ics"> (41.0-53.0 %)</content> Erythrocytes 4.4-5.9 <content Saint [#/volume] in styleCode="Bold Kath Blood by ">Red Blood Medical Automated count Cell Count Center </content>5.42 MCUMM<content styleCode="Ital ics"> (4.4-5.9 MCUMM)</content > Erythrocyte mean 80.0-100 <content [facility] corpuscular .0 styleCode="Bold Kath volume [Entitic ">Mean Medical volume] by Corpuscular Center Automated count Volume </content>80.6 FL<content styleCode="Ital ics"> (80.0-100.0 FL)</content> Erythrocyte 11.5-14. <content Saint distribution 5 styleCode="Bold Kath width [Ratio] by ">Red Cell Medical Automated count Distribution Center Width </content>13.3 %<content styleCode="Ital ics"> (11.5-14.5 %)</content> Erythrocyte mean 26.0-34. <content [facility] corpuscular 0 styleCode="Bold Kath hemoglobin ">Mean Medical [Entitic mass] Corposcular Center by Automated Hemoglobin count </content>26.4 PG<content styleCode="Ital ics"> (26.0-34.0 PG)</content> Erythrocyte mean 32.0-37. <content [facility] corpuscular 0 styleCode="Bold Kath hemoglobin ">Mean Corpus. Medical concentration Hgb Center [Mass/volume] by Concentration Automated count (MCHC) </content>32.7 G/DL<content styleCode="Ital ics"> (32.0-37.0 G/DL)</content> Platelets 130-400 <content Saint [#/volume] in styleCode="Bold Kath Blood by ">Platelet Medical Automated count Count Center </content>257 KCUMM<content styleCode="Ital ics"> (130-400 KCUMM)</content > UNK 0.0 <content Saint styleCode="Bold Kath ">Nucleated Red Medical Blood Cell Center Count </content>0.00 KCUMM<content styleCode="Ital ics"> (0.0 KCUMM)</content > UNK 0 <content Saint styleCode="Bold Kath ">Nucleated Red Medical Blood Cell Center </content>0.0 /100<content styleCode="Ital ics"> (0 /100)</content> Platelet mean 8.0-11.0 <content Saint volume [Entitic styleCode="Bold Kath volume] in Blood ">Mean Platelet Medical by Automated Volume Center count </content>10.4 FL<content styleCode="Ital ics"> (8.0-11.0 FL)</content> ID Date Data Source GFR(Creatinine).[id number] 11/28/2019 02:26:00 AM EDT [facility] 0-0400 Name Value Range Interpretation Code Description Data Aury rce(s) Supporting Document(s ) UNK > 60 <content [facility] styleCode="Bold"> Medical Cent er EGFR </content>105 GFR<content styleCode="Italic s"> (> 60 GFR)</content> ID Date Data Source CHMROUTINECCDA.[id number] 11/28/2019 02:26:00 AM EDT [facility] -0400 Name Value Range Interpretation Description Data Sup porting Code Source(s) Document(s ) UNK 30-110 <content Saint [facility] styleCode="Bold Medical ">Amylase Center </content>61 IU/L<content styleCode="Ital ics"> (30-110 IU/L)</content> Lipase 23-300 <content [facility] [Enzymatic styleCode="Bold Medical activity/vo ">Lipase Center lume] in </content>53 Serum or IU/L<content Plasma styleCode="Ital ics"> (23-300 IU/L)</content> ID Date Data Source CardiacMarkers.[id number] 11/28/2019 02:26:00 AM EDT [facility] -0400 Name Value Range Interpretation Description Data Sup porting Code Source(s) Document(s ) Troponin < 0.034 <content Saint I.cardiac styleCode="Bold Kath [Mass/volume ">Troponin I Medical ] in Serum </content>< Center or Plasma 0.012 NG/ML<content styleCode="Ital ics"> (< 0.034 NG/ML)</content > ID Date Data Source [facility].[id number] 11/28/2019 02:26:00 AM EDT [facility] Center Name Value Range Interpretation Description Data Sup porting Code Source(s) Document(s ) Sodium 137-145 <content Saint [Moles/volume] styleCode="Can Kath in Serum or d">Sodium Medical Plasma </content>138 Center MEQ/L<content styleCode="Petra lics"> (137-145 MEQ/L)</conten t> Potassium 3.5-5.3 <content [facility] [Moles/volume] styleCode="Can Kath in Serum or d">Potassium Medical Plasma </content>4.2 Center MEQ/L<content styleCode="Petra lics"> (3.5-5.3 MEQ/L)</conten t> Chloride 98-107 <content [facility] [Moles/volume] styleCode="Can Kath in Serum or d">Chloride Medical Plasma </content>104 Center MEQ/L<content styleCode="Petra lics"> (98-107 MEQ/L)</conten t> UNK 9-20 <content Saint styleCode="Can Kath d">BUN Medical </content>16 Center MG/DL<content styleCode="Petra lics"> (9-20 MG/DL)</conten t> Creatinine 0.5-1.3 <content Saint [Mass/volume] styleCode="Can Kath in Serum or d">Creatinine Medical Plasma </content>1.1 Center MG/DL<content styleCode="Petra lics"> (0.5-1.3 MG/DL)</conten t> Glucose 74-106 <content Saint [Mass/volume] styleCode="Can Kath in Serum or d">Glucose Medical Plasma </content>106 Center MG/DL<content styleCode="Petra lics"> (74-106 MG/DL)</conten t> Carbon 22-30 <content Saint dioxide, total styleCode="Can Kath [Moles/volume] d">Carbon Medical in Serum or Dioxide Center Plasma </content>28 MEQ/L<content styleCode="Petra lics"> (22-30 MEQ/L)</conten t> UNK > 60 <content Saint styleCode="Can Kath d">EGFR Medical </content>105 Center GFR<content styleCode="Petra lics"> (> 60 GFR)</content> Calcium 8.4-10.2 <content [facility] [Mass/volume] styleCode="Can Kath in Serum or d">Calcium Medical Plasma </content>9.3 Center MG/DL<content styleCode="Petra lics"> (8.4-10.2 MG/DL)</conten t> ID Date Data Source [id number] 08/21/2019 10:25:00 AM EDT [facility] [id number] Corporation Name Value Range Interpretation Description Data Sup porting Code Source(s) Document(s ) Echo 2D [id number] [facility] <td> 08/21/2019 [facility] M-Mode [id number] 10:25</td><td> [facility] [id number] Echo 2D M-Mode [facility] (TTE) Non-Invasive Complete (TTE) [facility] Cardiology </td><td> Laboratory [id number] Advanced
Physician [facility]
[id number] [place]
[address] Phone [phone] Non-Invasive Adult
Echocardiogram Cardiology Report Name:
Kaleigh VICTOR JR.
Study Advanced Date:
08/21/2019 Physician 10:25 AM [facility]
BP: 113/70 [address] : [address] 1995
[place], [place] Gender:
Male Age: 23 [address] yrs
Phone [phone] Height: 73 in
Account [phone] Fax Number:
[phone] Weight: 274 lb
BSA: 2.5 m2 Adult Patient Echocardiogram Location: CDU Report Reason For
Study: SYNCOPE Name: VALENTE [facility] COLLAPSE JAKE LOONEY Ordering Physician: Study Date: CHETNA, 08/21/2019 NIKUNJ 10:25 AM Performed By:
Cyndi Torres, [facility] Interpretation BP: Summary The 113/70 mmHg left ventricle
is normal in : size. There 1995 is normal left ventricular Gender: wall thickness. Male Left
Age: ventricular 23 yrs systolic function is Height: 73 normal. The in left
ventricular Account Number: wall motion is [id number] normal. Left ventricular Weight: 274 lb ejection
fraction is BSA: 2.5 m2 60%. The right
ventricular Patient systolic Location: CDU function is
normal. Reason For Trivial Study: SYNCOPE tricuspid valve & COLLAPSE regurgitation. There was

insufficient Ordering tricuspid Physician: jayjay BASILIO, detected to NIKUNJ calculate
pulmonary Performed By: artery systolic Cyndi Torres, pressure. [facility] ICD-10

Syncope and Interpretation collapse - R55. Summary Procedure
A complete The left two-dimensional ventricle is transthoracic normal in size. echocardiogram was performed
There (2D, M-mode, is normal left spectral and ventricular color flow wall thickness. Doppler). (35446). Study
Left quality is ventricular adequate. systolic Patient refused function is Definity echo normal. contrast.
Left Ventricle The left The left ventricular ventricle is wall motion is normal in size. normal. There is normal
left Left ventricular ventricular wall ejection thickness. Left fraction is ventricular 60%. systolic
The function is right normal. Left ventricular ventricular systolic ejection function is fraction is normal. 60%. The left
ventricular Trivial wall motion is tricuspid valve normal. regurgitation. Right Ventricle
The right There was ventricle is insufficient normal in size. tricuspid There is normal regurgitation right detected to ventricular calculate wall thickness.
The right pulmonary ventricular artery systolic systolic pressure. function is

normal. ICD-10 Left Atrium
Indexed left Syncope and atrial volume collapse - R55. is normal. LA ESV Index (BP)

- 21.5 ml/m2. Procedure Right Atrium
Normal right A complete atrial size. two-dimensional Aortic Valve transthoracic The aortic echocardiogram valve is was performed trileaflet. (2D, There is no
aortic M-mode, stenosis. No spectral and aortic color flow regurgitation. Doppler). Mitral (03211). Study Valve quality is Structurally
normal mitral adequate. valve. There is Patient refused no mitral valve Definity echo stenosis. No contrast. significant

mitral Left regurgitation. Ventricle Tricuspid
Valve The left Structurally ventricle is normal normal in size. tricuspid There is normal valve. There is left no tricuspid ventricular stenosis. wall Trivial
tricuspid valve thickness. Left regurgitation. ventricular Pulmonic systolic Valve The function is pulmonic valve normal. Left is not well ventricular visualized.
There is no ejection pulmonic valve fraction is stenosis. No 60%. The left significant ventricular pulmonic wall motion is regurgitation. normal. Aorta The aortic root is

normal in size. Right The visualized Ventricle area of
ascending aorta The right is normal in ventricle is size. The normal in size. visualized area There is normal of aortic arch right is normal in ventricular size.
Pulmonary wall Artery There thickness. The was right insufficient ventricular tricuspid systolic regurgitation function is detected to normal. calculate

pulmonary Left Atrium artery systolic
pressure. Indexed left Venous The atrial volume inferior vena is normal. LA cava is normal ESV Index (BP) in size. - 21.5 ml/m2. Pericardium There is no

pericardial Right Atrium effusion.
MMode/2D Normal right Measurements & atrial size. Calculations IVSd: 0.86 cm

Aortic Valve LVIDd: 5.3 cm
LV The aortic mass(C)d: valve is LVIDs: 3.5 cm trileaflet. There is no 158.9 grams aortic LVPWd: 0.82 cm stenosis. No LV aortic mass(C)dI:
64.6 grams/m2 regurgitation.

Mitral Valve
_ Ao root Structurally diam: 2.8 cm normal mitral Asc Aorta valve. There is diam: 2.9 cm no mitral valve LVOT diam: 2.0 stenosis. No cm LA
dimension: 3.5 significant cm Ao mitral arch diam: 3.0 regurgitation. cm

Tricuspid Valve
_ Left Structurally atrial volume normal (2c): IVC tricuspid Diameter: 1.7 valve. There is cm RA no tricuspid area (4c): stenosis. 48.0 ml
Trivial tricuspid valve 15.9 cm2 regurgitation. Left atrial volume (4c):

53.2 ml Pulmonic Valve
The pulmonic valve is not well _ Left visualized. atrial volume There is no index Left pulmonic valve atrial volume
index (2c): stenosis. 19.5 ml/m2 No significant (4c): 21.6 pulmonic ml/m2 regurgitation. Doppler Measurements

& Aorta Calculations
The MV E max leonard: aortic root is 90.7 cm/sec normal in size. MV dec time: The visualized 0.20 sec Lat area of E' leonard: 5.3 ascending aorta cm/sec MV A max leonard: 66.9
is cm/sec normal in size. The visualized area of aortic arch is normal in size. _ Med E' leonard:

6.1 cm/sec Pulmonary E/E' Lateral: Artery 17.0 AV v
max: 169.2 There was cm/sec E/E' insufficient Medial: 15.0 tricuspid AV max PG: regurgitation 11.5 mmHg detected to calculate
pulmonary artery systolic _ LVOT max pressure. P.6 mmHg

PA max PG: Venous 4.7 mmHg RV
S leonard: 12.7 The inferior cm/sec LVOT v vena cava is max: 162.8 normal in size. cm/sec

Pericardium
There is no _ E/E' pericardial Average: 16.0 effusion.

MMode/2D Measurements & Calculations
_ IVSd: 0.86 cm Reading Physician: LVIDd: 5.3 cm Hunter Overton LV MD 08/21/2019 mass(C)d: 11:29 AM
LVIDs: 3.5 cm 158.9 grams
LVPWd: 0.82 cm LV mass(C)dI:
64.6 grams/m2
_

Ao root diam: 2.8 cm Asc Aorta diam: 2.9 cm LVOT diam: 2.0 cm
LA dimension: 3.5 cm Ao arch diam: 3.0 cm
_

Left atrial volume (2c): IVC Diameter: 1.7 cm RA area (4c):
48.0 ml 15.9 cm2
Left atrial volume (4c):
53.2 ml
_

Left atrial volume index Left atrial volume index
(2c): 19.5 ml/m2 (4c): 21.6 ml/m2

Doppler Measurements & Calculations
MV E max leonard: 90.7 cm/sec MV dec time: 0.20 sec Lat E' leonard: 5.3 cm/sec
MV A max leonard: 66.9 cm/sec

__
Med E' leonard: 6.1 cm/sec E/E' Lateral: 17.0 AV v max: 169.2 cm/sec
E/E' Medial: 15.0 AV max P.5 mmHg

_
LVOT max P.6 mmHg PA max P.7 mmHg RV S leonard: 12.7 cm/sec
LVOT v max: 162.8 cm/sec
_

E/E' Average: 16.0

_

Reading Physician:
Hunter Overton MD 08/21/2019 11:29 AM

</td> ID Date Data Source [id number] 08/21/2019 08:16:00 AM EDT [facility] [id number] Corporation Name Value Range Interpretation Description Data Sup porting Code Source(s) Document(s ) Head (PACSIMAGE <td> 08/21/2019 [place] [facility]&W ) 08:16</td><td> County /Out Final Result Head With&W/Out Health Ca re Contra Name: VALENTE [facility]-MRA JAKE LOONEY MRN: </td><td><paragr [id number] Sex: M aph : 1995 styleCode="Itali Location: M cs">(PACSIMAGE Admitting Physician: Requesting )</paragraph><br Physician: ERVIS />
Final XHIHANI Result Exam: MRA HEAD

C+/C- 08/21/2019 Name: VALENTE LOONEY, 10:02 JAKE CLINICAL
MRN: STATEMENT: "Rule [id number] Sex: M out carotid
dissection". : COMPARISON: MR 1995 brain dated Location: 08/20/2019.
TECHNIQUE: MRA Admitting Head: MR Physician: angiography was
performed using a Requesting 3-D Physician: ERVIS hiyr-np-[id number] XHIHANI sequence. Post

contrast coronal Exam: MRA HEAD images were C+/C- 08/21/2019 acquired. MRA 10:02 neck: Axial 2-D

and 3-D CLINICAL rntv-fn-ypiifx STATEMENT: "Rule and coronal out carotid postcontrast dissection". imaging was obtained from the

level of the COMPARISON: MR aortic arch to brain dated the [place] of 08/20/2019. White.

CONTRAST: 13 cc TECHNIQUE: Gadavist.
FINDINGS: MR MRA Head: MR angiography angiography was bcjuul-xj-Dpgieg: performed using There is no a 3-D evidence of bubs-wa-lvzpkv proximal branch
occlusion or sequence. Post high-grade contrast coronal proximal stenosis images were to the visualized acquired. vessels of the
[place] of MRA neck: Axial White. No 2-D and 3-D evidence of rvpx-fo-nrkelr aneurysm. Please and coronal note that postcontrast aneurysms less
than 5 mm may or imaging was may not be obtained from detected with the level of the routine MR aortic arch to angiography the technique.
[place] MR angiography of of White. the neck:

Origins of the CONTRAST: 13 great vessels of cc Gadavist. the neck are grossly patent.

There is no FINDINGS: occlusion or

high-grade MR angiography stenosis within ccnout-pb-Aofirq the visualized : vertebral
There arteries.. There is no evidence is no evidence of of proximal hemodynamically branch occlusion significant or high-grade stenosis at the
common carotid proximal artery stenosis to the bifurcations visualized bilaterally as vessels of the per NASCET [place] of criteria.
IMPRESSION: White. No MRA Head: No evidence of evidence of aneurysm. Please proximal branch note that occlusion or high aneurysms less grade proximal
stenosis. than 5 mm may MRA Neck: No or may not be evidence of detected with hemodynamically routine MR significant angiography stenosis at the
common carotid technique. artery

bifurcations MR bilaterally as angiography of per NASCET the neck: criteria..
Origins of the Resident great vessels of Radiologist: the neck are Tashi Santiago MD grossly patent. Resident
Radiologist There is no Attending occlusion or Radiologist: high-grade Grupo Gomez MD stenosis within Finalizing the visualized Radiologist:
Grupo Gomez MD vertebral Transcribed Date: arteries.. There 08/21/2019 10:48 is no evidence Finalized Date: of 08/21/2019 11:11 hemodynamically
significant stenosis at the common carotid artery bifurcations
bilaterally as per NASCET criteria.

IMPRESSION:

MRA Head:
No evidence of proximal branch occlusion or high grade proximal
stenosis.

MRA Neck:
No evidence of hemodynamically significant stenosis at the common
carotid artery bifurcations bilaterally as per NASCET criteria..

< br/>

<b r/> Resident Radiologist: Tashi Santiago MD Resident Radiologist
Attending Radiologist: Grupo Gomez MD
Finalizing Radiologist: Grupo Gomez MD
Transcribed Date: 08/21/2019 10:48
Finalized Date: 08/21/2019 11:11

</td> Neck (PACSIMAGE <td> 08/21/2019 [place] [facility] ) 08:24</td><td> County /Out Final Result Neck With&W/Out Health Ca re Contra Name: VALENTE [facility]-MRA [facility] st-JAKE ST JR. MRN: </td><td><paragr [id number] Sex: M aph : 1995 styleCode="Itali Location: cs">(PACSIMAGE Admitting Physician: HAMIDA MAYER )</paragraph><br Requesting />
Final Physician: DARI Result QUINONES Exam:

MRA NECK C+/C- Name: VALENTE LOONEY, 08/21/2019 10:02 JAKE CLINICAL
MRN: STATEMENT: "Rule [id number] Sex: M out carotid
dissection". : COMPARISON: MR 1995 brain dated Location: 08/20/2019.
TECHNIQUE: MRA Admitting Head: MR Physician: HAMIDA angiography was LEYLA performed using a
3-D Requesting lvie-jg-riyqgx Physician: DARI sequence. Post QUINONES contrast coronal

images were Exam: MRA NECK acquired. MRA C+/C- 08/21/2019 neck: Axial 2-D 10:02 and 3-D

osbb-qd-indifa CLINICAL and coronal STATEMENT: "Rule postcontrast out carotid imaging was dissection". obtained from the level of the

aortic arch to COMPARISON: MR the [place] of brain dated White. 08/20/2019. CONTRAST: 13 cc

Gadavist. TECHNIQUE: FINDINGS: MR
angiography MRA Head: MR pqfvll-zc-Wtbkks: angiography was There is no performed using evidence of a 3-D proximal branch keck-hk-maqyvk occlusion or
high-grade sequence. Post proximal stenosis contrast coronal to the visualized images were vessels of the acquired. [place] of
White. No MRA neck: Axial evidence of 2-D and 3-D aneurysm. Please qfcz-bi-txfdkf note that and coronal aneurysms less postcontrast than 5 mm may or
may not be imaging was detected with obtained from routine MR the level of the angiography aortic arch to technique. the MR angiography of
[place] the neck: of White. Origins of the

great vessels of CONTRAST: 13 the neck are cc Gadavist. grossly patent. There is no

occlusion or FINDINGS: high-grade

stenosis within MR angiography the visualized avhnft-gn-Chssyp vertebral : arteries.. There
There is no evidence of is no evidence hemodynamically of proximal significant branch occlusion stenosis at the or high-grade common carotid
artery proximal bifurcations stenosis to the bilaterally as visualized per NASCET vessels of the criteria. [place] of IMPRESSION:
MRA Head: No White. No evidence of evidence of proximal branch aneurysm. Please occlusion or high note that grade proximal aneurysms less stenosis.
MRA Neck: No than 5 mm may evidence of or may not be hemodynamically detected with significant routine MR stenosis at the angiography common carotid
artery technique. bifurcations

bilaterally as MR per NASCET angiography of criteria.. the neck:
Resident Origins of the Radiologist: great vessels of Tashi Santiago MD the neck are Resident grossly patent. Radiologist
Attending There is no Radiologist: occlusion or Grupo Gomez MD high-grade Finalizing stenosis within Radiologist: the visualized Grupo Gomez MD
Transcribed Date: vertebral 08/21/2019 10:48 arteries.. There Finalized Date: is no evidence 08/21/2019 11:11 of hemodynamically
significant stenosis at the common carotid artery bifurcations
bilaterally as per NASCET criteria.

IMPRESSION:

MRA Head:
No evidence of proximal branch occlusion or high grade proximal
stenosis.

MRA Neck:
No evidence of hemodynamically significant stenosis at the common
carotid artery bifurcations bilaterally as per NASCET criteria..

< br/>

<b r/> Resident Radiologist: Tashi Santiago MD Resident Radiologist
Attending Radiologist: Grupo Gomez MD
Finalizing Radiologist: Grupo Gomez MD
Transcribed Date: 08/21/2019 10:48
Finalized Date: 08/21/2019 11:11

</td> ID Date Data Source [id number] 08/21/2019 07:21:00 AM EDT [facility] [id number] Corporation Name Value Range Interpretation Description Data Sup porting Code Source(s) Document(s ) Erythrocytes 5.41 m/mm3 4.00-5 <td> 08/21/2019 [facility] r [#/volume] in .20 07:21</td><td> [facility] Blood m/mm3 RBC Health Care </td><td><jaki Corporation raph styleCode="Bold "> 5.41 H </paragraph>
(4.00-5.20) m/mm3 </td> Leukocytes 7.6 k/mm3 4.5-10 <td> 08/21/2019 [place] [#/volume] in .8 07:21</td><td> [facility] Blood by k/mm3 WBC </td><td> Health Care Automated count Corporation 7.6
(4.5-10.8) k/mm3 </td> Erythrocyte 82.4 fL 80.0-9 <td> 08/21/2019 [place] mean 5.0 fL 07:21</td><td> [facility] corpuscular MCV </td><td> Health Care volume [Entitic Corporation volume] by 82.4 Automated count
(80.0-95.0) fL </td> Hematocrit 44.6 % 36.0-4 <td> 08/21/2019 [place] [Volume 6.0 % 07:21</td><td> County Fraction] of HCT </td><td> Health Care Blood by Corporation Automated count 44.6
(36.0-46.0) % </td> Hemoglobin 14.0 g/dL 12.3-1 <td> 08/21/2019 [place] [Mass/volume] 4.9 07:21</td><td> [facility] in Blood g/dL HGB </td><td> [facility] 14.0
(12.3-14.9) g/dL </td> Erythrocyte 25.9 pg 27.0-3 <td> 08/21/2019 [place] mean 1.5 pg 07:21</td><td> [facility] corpuscular [facility] hemoglobin </td><td><[employer] [Entitic mass] raph by Automated styleCode="Bold count "> 25.9 L </paragraph>
(27.0-31.5) pg </td> Erythrocyte 31.4 % 32.0-3 <td> 08/21/2019 [place] mean 6.0 % 07:21</td><td> [facility] corpuscular [facility] Care hemoglobin </td><td><[employer] concentration raph [Mass/volume] styleCode="Bold in Blood from "> Fetus by 31.4 Automated count L </paragraph>
(32.0-36.0) % </td> Platelets 226 k/mm3 160-41 <td> 08/21/2019 [place] [#/volume] in 0 07:21</td><td> [facility] Blood by k/mm3 Platelet Count Health Care Automated count </td><td> [facility] 226
(160-410) k/mm3 </td> Platelet mean 10.0 fL 9.8-12 <td> 08/21/2019 [facility] r volume [Entitic .8 fL 07:21</td><td> County volume] in MPV </td><td> Health Care Blood by [facility] Automated count 10.0
(9.8-12.8) fL </td> Erythrocyte 13.7 % 11.5-1 <td> 08/21/2019 [place] distribution 4.5 % 07:21</td><td> County width [Entitic RDW </td><td> Health Car e volume] by [facility] have [facility]! Automated count 13.7
(11.5-14.5) % </td> Glucose 88 mg/dL 70-105 <td> 08/21/2019 [place] [Mass/volume] mg/dL 07:21</td><td> County in Blood Glucose-Serum Health Care </td><td> [facility]! 88
(70-105) mg/dL </td> Sodium 140 mEq/L 135-14 <td> 08/21/2019 [place] [Moles/volume] 5 07:21</td><td> County in Serum or mEq/L Sodium-Serum Health Care Plasma </td><td> [facility]! 140
(135-145) mEq/L </td> Chloride 106 mEq/L 98-107 <td> 08/21/2019 [place] [Moles/volume] mEq/L 07:21</td><td> County in Serum or Chloride Health Care Plasma </td><td> [facility]! 106
(98-107) mEq/L </td> Potassium 3.8 mEq/L 3.5-5. <td> 08/21/2019 [place] [Moles/volume] 1 07:21</td><td> County in Serum or mEq/L Potassium-Serum Health Care Plasma </td><td> [facility]! 3.8
(3.5-5.1) mEq/L </td> Urea nitrogen 14 mg/dL 6-22 <td> 08/21/2019 [facility] r [Mass/volume] mg/dL 07:21</td><td> County in Blood BUN </td><td> Health Care [facility]! 14
(6-22) mg/dL </td> Creatinine 1.03 mg/dL 0.72-1 <td> 08/21/2019 [place] [Moles/volume] .25 07:21</td><td> County in Serum or mg/dL Creatinine. Health Care Plasma </td><td> [facility]! 1.03
(0.72-1.25) mg/dL </td> Calcium 8.1 mg/dL 8.6-10 <td> 08/21/2019 [place] [Mass/volume] .2 07:21</td><td> County in Blood mg/dL Calcium Health Care </td><td><jaki [facility] raph styleCode="Bold "> 8.1 L </paragraph>
(8.6-10.2) mg/dL </td> Carbon dioxide, 27 mEq/L 22-30 <td> 08/21/2019 [facility] total mEq/L 07:21</td><td> County [Moles/volume] CO2 </td><td> Health Car e in Serum or Corporation Plasma 27
(22-30) mEq/L </td> Icteric index Not <td> 08/21/2019 [facility] r of Serum or Icteric 07:21</td><td> [facility] Plasma Icteric Index Health Care </td><td> [facility] Not Icteric
</td> Anion gap in 7 mEq/L 7-13 <td> 08/21/2019 [place] Serum or Plasma mEq/L 07:21</td><td> [facility] Anion Gap Health Care </td><td> [facility]! 7
(7-13) mEq/L </td> Hemolysis index No <td> 08/21/2019 [facility] of Serum or Hemolysis 07:21</td><td> [facility] Plasma Hemolysis Index Health Care </td><td> [facility] have it! No Hemolysis
</td> Lipemic index No Lipemia <td> 08/21/2019 [facility] er of Serum or 07:21</td><td> County Plasma Lipemia Index Health Care </td><td> L[facility] have it! No Lipemia
</td> aPTT panel - 26.5 secs 25.0-3 <td> 08/21/2019 [place] Platelet poor 2.0 07:21</td><td> [facility] plasma secs Partial [facility] Care Thromboplastin [facility] Time </td><td> 26.5
(25.0-32.0) secs </td> Prothrombin 10.9 secs 9.8-12 <td> 08/21/2019 [place] time (PT) .0 07:21</td><td> [facility] secs Prothrombin Health Care Time. [facility] </td><td> 10.9
(9.8-12.0) secs </td> Magnesium 1.9 mg/dL 1.6-2. <td> 08/21/2019 [place] [Mass/volume] 6 07:21</td><td> [facility] in Serum or mg/dL Magnesium Level Health Care Plasma </td><td> [facility] 1.9
(1.6-2.6) mg/dL </td> Hemoglobin A1C 5.3 % 4.0-5. <td> 08/21/2019 [facility] 6 % 11:31</td><td> [facility] Hemoglobin A1C [facility] Care </td><td> [facility] 5.3
(4.0-5.6) %
Increased risk for diabetes mellitus is seen in patients with HgA1C values
between 5.7-6.4%. Values > or = 6.5% are considered diagnostic of diabetes
mellitus.
Hemolytic anemias, hemoglobinopath ies, or recent transfusion may impact
HbA1c results. Clinical correlation is recommended.
===
ESTIMATED AVERAGE GLUCOSE (eAG)
---
RELATIONSHIP BETWEEN A1C AND eAG
===
A1C(%) eAG(mg/dL)
6 1 26
7 1 54
8 1 83
9 2 12
10 240
11 269
12 298
Source: Adapted from [place] [employer]. Standards of medical
care in diabetes-2014. Diabetes Care.2014;37(Alcantar pp 1):S14-S80, table 8.

(4.0-5.6) % </td> Triglyceride 138 mg/dL 30-200 <td> 08/21/2019 [place] [Mass/volume] mg/dL 07:21</td><td> [facility] in Serum or Triglyceride Health Care Plasma </td><td> Corporation 138
(30-200) mg/dL </td> Cholesterol in 157 mg/dL <150 <td> 08/21/2019 [facility] er LDL mg/dL 07:21</td><td> [facility] [Mass/volume] LDL Cholesterol Health Car e in Serum or </td><td><para Corporation Plasma graph styleCode="Bold "> 157 * AB </paragraph>
(<150) mg/dL </td> Cholesterol in 33 mg/dL >60 <td> 08/21/2019 [facility] er HDL mg/dL 07:21</td><td> [facility] [Mass/volume] HDL Cholesterol Health Car e in Serum or </td><td> Corporation Plasma 33
(>60) mg/dL </td> Cholesterol 218 mg/dL 125-24 <td> 08/21/2019 [place] [Moles/volume] 0 07:21</td><td> County in Serum or mg/dL Cholesterol [facility] Care Plasma </td><td> [facility] have [facility]! 218
(125-240) mg/dL </td> ID Date Data Source Liver 08/20/2019 05:10:00 PM EDT [facility] Profile.[id number] Name Value Range Interpretation Description Data Sup porting Code Source(s) Document(s ) Aspartate 17-59 <content [facility] aminotransferase styleCode="Bold"> [facility] hs [Enzymatic Aspartate Medical activity/volume] Aminotransferase Center in Serum or Plasma (AST) </content>18 IU/L<content styleCode="Italic s"> (17-59 IU/L)</content> UNK 0.0-0.3 <content [facility] styleCode="Bold"> Kath Bilirubin, Direct Medical </content>< 0.2 Center MG/DL<content styleCode="Italic s"> (0.0-0.3 MG/DL)</content> Bilirubin.total 0.2-1.3 Below low <content [facility] [Mass/volume] in normal styleCode="Bold"> Fl[place] hs Serum or Plasma Bilirubin Total Medical </content>< 0.2 Center MG/DL L<content styleCode="Italic s"> (0.2-1.3 MG/DL)</content> Alkaline 38-126 <content [facility] phosphatase styleCode="Bold"> Kath [Enzymatic Alkaline Medical activity/volume] Phosphatase (ALP) Cente r in Serum or Plasma </content>87 IU/L<content styleCode="Italic s"> (38-126 IU/L)</content> Alanine 7-50 <content [facility] aminotransferase styleCode="Bold"> [facility] hs [Enzymatic Alanine Medical activity/volume] Aminotransferase Center in Serum or Plasma (ALT) </content>25 IU/L<content styleCode="Italic s"> (7-50 IU/L)</content> Albumin 3.5-5.0 <content [facility] [Mass/volume] in styleCode="Bold"> Flaco hs Serum or Plasma Albumin Medical </content>4.1 Center G/DL<content styleCode="Italic s"> (3.5-5.0 G/DL)</content> ID Date Data Source HematologyRou.[id number] 08/20/2019 05:10:00 PM EDT [facility] 0400 Name Value Range Interpretation Description Data Sup porting Code Source(s) Document(s ) Erythrocytes 4.4-5.9 <content [facility] [#/volume] in styleCode="Bold Kath Blood by ">Red Blood Medical Automated count Cell Count Center </content>5.42 MCUMM<content styleCode="Ital ics"> (4.4-5.9 MCUMM)</content > Leukocytes 4.4-11.0 Above high <content [facility] [#/volume] in normal styleCode="Bold Kath Blood by ">White Blood Medical Automated count Cell Count Center </content>11.62 KCUMM H<content styleCode="Ital ics"> (4.4-11.0 KCUMM)</content > Erythrocyte mean 80.0-100 <content [facility] corpuscular .0 styleCode="Bold Kath volume [Entitic ">Mean Medical volume] by Corpuscular Center Automated count Volume </content>81.9 FL<content styleCode="Ital ics"> (80.0-100.0 FL)</content> Erythrocyte mean 32.0-37. <content [facility] corpuscular 0 styleCode="Bold Kath hemoglobin ">Mean Corpus. Medical concentration Hgb Center [Mass/volume] by Concentration Automated count (MCHC) </content>32.2 G/DL<content styleCode="Ital ics"> (32.0-37.0 G/DL)</content> Erythrocyte mean 26.0-34. <content [facility] corpuscular 0 styleCode="Bold Kath hemoglobin ">Mean Medical [Entitic mass] Corposcular Center by Automated Hemoglobin count </content>26.4 PG<content styleCode="Ital ics"> (26.0-34.0 PG)</content> Hematocrit 41.0-53. <content [facility] [Volume 0 styleCode="Bold Kaht Fraction] of ">Hematocrit Medical Blood by </content>44.4 Center Automated count %<content styleCode="Ital ics"> (41.0-53.0 %)</content> Hemoglobin 13.5-17. <content [facility] [Mass/volume] in 5 styleCode="Bold Kath Blood ">Hemoglobin Medical </content>14.3 Center G/DL<content styleCode="Ital ics"> (13.5-17.5 G/DL)</content> Platelet mean 8.0-11.0 <content [facility] volume [Entitic styleCode="Bold Kath volume] in Blood ">Mean Platelet Medical by Automated Volume Center count </content>10.8 FL<content styleCode="Ital ics"> (8.0-11.0 FL)</content> Erythrocyte 11.5-14. <content [facility] distribution 5 styleCode="Bold [place] width [Ratio] by ">Red Cell Medical Automated count Distribution Center Width </content>14.0 %<content styleCode="Ital ics"> (11.5-14.5 %)</content> UNK 0 <content Saint styleCode="Bold Kath ">Nucleated Red Medical Blood Cell Center </content>0.0 /100<content styleCode="Ital ics"> (0 /100)</content> Platelets 130-400 <content [facility] [#/volume] in styleCode="Bold Kath Blood by ">Platelet Medical Automated count Count Center </content>242 KCUMM<content styleCode="Ital ics"> (130-400 KCUMM)</content > UNK 0.0 <content Saint styleCode="Bold Kath ">Nucleated Red Medical Blood Cell Center Count </content>0.00 KCUMM<content styleCode="Ital ics"> (0.0 KCUMM)</content > ID Date Data Source GFR(Creatinine).[id number] 08/20/2019 05:10:00 PM EDT [facility] 0-0400 Name Value Range Interpretation Code Description Data Aury rce(s) Supporting Document(s ) UNK > 60 <content [facility] [place] styleCode="Bold"> Medical Cent er EGFR </content>96 GFR<content styleCode="Italic s"> (> 60 GFR)</content> ID Date Data Source HUNTERDA.[id number] 08/20/2019 05:10:00 PM EDT [facility] -0400 Name Value Range Interpretation Description Data Sup porting Code Source(s) Document(s ) UNK 30-110 <content [facility] [place] styleCode="Bold Medical ">Amylase Center </content>73 IU/L<content styleCode="Ital ics"> (30-110 IU/L)</content> Lipase 23-300 <content [facility] [Enzymatic styleCode="Bold Medical activity/vo ">Lipase Center lume] in </content>45 Serum or IU/L<content Plasma styleCode="Ital ics"> (23-300 IU/L)</content> ID Date Data Source CardiacMarkers.[id number] 08/20/2019 05:10:00 PM EDT [facility] -0400 Name Value Range Interpretation Description Data Sup porting Code Source(s) Document(s ) Troponin < 0.034 <content Saint I.cardiac styleCode="Bold Kath [Mass/volume ">Troponin I Medical ] in Serum </content>< Center or Plasma 0.012 NG/ML<content styleCode="Ital ics"> (< 0.034 NG/ML)</content > ID Date Data Source [facility].[id number] 08/20/2019 05:10:00 PM EDT [facility] Name Value Range Interpretation Description Data Sup porting Code Source(s) Document(s ) Sodium 137-145 <content Saint [Moles/volume] in styleCode="Bold"> Tho phs Serum or Plasma Sodium Medical </content>140 Center MEQ/L<content styleCode="Italic s"> (137-145 MEQ/L)</content> UNK 9-20 <content Saint styleCode="Bold"> Kath BUN </content>19 Medical MG/DL<content Center styleCode="Italic s"> (9-20 MG/DL)</content> Chloride 98-107 <content [facility] [Moles/volume] in styleCode="Bold"> Tho phs Serum or Plasma Chloride Medical </content>105 Center MEQ/L<content styleCode="Italic s"> (98-107 MEQ/L)</content> Carbon dioxide, 22-30 <content Saint total styleCode="Bold"> Kath [Moles/volume] in Carbon Dioxide Medical Serum or Plasma </content>30 Center MEQ/L<content styleCode="Italic s"> (22-30 MEQ/L)</content> Potassium 3.5-5.3 <content [facility] [Moles/volume] in styleCode="Bold"> Tho [facility] Serum or Plasma Potassium Medical </content>3.7 Center MEQ/L<content styleCode="Italic s"> (3.5-5.3 MEQ/L)</content> UNK > 60 <content Saint styleCode="Bold"> Kath EGFR </content>96 Medical GFR<content Center styleCode="Italic s"> (> 60 GFR)</content> Calcium 8.4-10. <content Saint [Mass/volume] in 2 styleCode="Bold"> Flaco hs Serum or Plasma Calcium Medical </content>9.2 Center MG/DL<content styleCode="Italic s"> (8.4-10.2 MG/DL)</content> Creatinine 0.5-1.3 <content Saint [Mass/volume] in styleCode="Bold"> Flaco hs Serum or Plasma Creatinine Medical </content>1.2 Center MG/DL<content styleCode="Italic s"> (0.5-1.3 MG/DL)</content> Aspartate 17-59 <content [facility] aminotransferase styleCode="Bold"> [place] hs [Enzymatic Aspartate Medical activity/volume] Aminotransferase Center in Serum or Plasma (AST) </content>18 IU/L<content styleCode="Italic s"> (17-59 IU/L)</content> Glucose 74-106 Above high <content Saint [Mass/volume] in normal styleCode="Bold"> Flaco hs Serum or Plasma Glucose Medical </content>108 Center MG/DL H<content styleCode="Italic s"> (74-106 MG/DL)</content> Alanine 7-50 <content [facility] aminotransferase styleCode="Bold"> [place] hs [Enzymatic Alanine Medical activity/volume] Aminotransferase Center in Serum or Plasma (ALT) </content>25 IU/L<content styleCode="Italic s"> (7-50 IU/L)</content> Alkaline 38-126 <content [facility] phosphatase styleCode="Bold"> Kath [Enzymatic Alkaline Medical activity/volume] Phosphatase (ALP) Cente r in Serum or Plasma </content>87 IU/L<content styleCode="Italic s"> (38-126 IU/L)</content> Bilirubin.total 0.2-1.3 Below low <content [facility] [Mass/volume] in normal styleCode="Bold"> Flaco hs Serum or Plasma Bilirubin Total Medical </content>< 0.2 Center MG/DL L<content styleCode="Italic s"> (0.2-1.3 MG/DL)</content> Albumin 3.5-5.0 <content [facility] [Mass/volume] in styleCode="Bold"> Flaco hs Serum or Plasma Albumin Medical </content>4.1 Center G/DL<content styleCode="Italic s"> (3.5-5.0 G/DL)</content> ID Date Data Source CHMROUTINECCDA.[id number] 08/20/2019 04:45:00 PM EDT [facility] -0400 Name Value Range Interpretation Description Data Sup porting Code Source(s) Document(s ) Cannabinoids <content Saint [Presence] in styleCode="[facility] Urine by Screen d">Cannabinoid Medical method >50 ng/mL s Center </content>NEGA TIVE NG/ML (Reference Range: not available)<br/ > ID Date Data Source Urinalysis.[id number] 08/20/2019 04:40:00 PM EDT [facility] 0 Name Value Range Interpretation Description Data Sup porting Code Source(s) Document(s ) Color of Urine YELLOW <content Saint styleCode="Can Kath d">Color, Medical Urine Center </content>YELL OW <content styleCode="Petra lics"> (YELLOW )</content> UNK NEGATIVE <content Saint styleCode="Can Kath d">Urine Medical Bilirubin Center </content>NEGA TIVE <content styleCode="Petra lics"> (NEGATIVE )</content> Ketones NEGATIVE <content Saint [Mass/volume] styleCode="Can [place] in Urine by d">Urine Medical Test strip Ketone Center </content>NEGA TIVE MG/DL<content styleCode="Petra lics"> (NEGATIVE MG/DL)</conten t> Glucose NEGATIVE <content [facility] [Mass/volume] styleCode="Can [place] in Urine by d">Urine Medical Test strip Glucose Center </content>NEGA TIVE MG/DL<content styleCode="Petra lics"> (NEGATIVE MG/DL)</conten t> UNK CLEAR <content Saint styleCode="Can Kath d">Urine Medical Clarity Center </content>SHAHEEN R <content styleCode="Petra lics"> (CLEAR )</content> Hemoglobin NEGATIVE <content Saint [Presence] in styleCode="Can Mauros Urine by Test d">Urine Blood Medical strip </content>NEGA Center TIVE <content styleCode="Petra lics"> (NEGATIVE )</content> pH of Urine by 4.5-8.0 <content Saint Test strip styleCode="Can Kath d">Urine pH Medical </content>6.0 Center <content styleCode="Petra lics"> (4.5-8.0 )</content> Specific 1.015-1.02 <content Saint gravity of 5 styleCode="Can Mauros Urine by Test d">Urine Medical strip Specific Center [place] </content>1.02 5 <content styleCode="Petra lics"> (1.015-1.025 )</content> Leukocyte NEGATIVE <content Saint esterase styleCode="Can Mauros [Presence] in d">Urine Medical Urine by Test Leukocyte Center strip </content>NEGA TIVE <content styleCode="Petra lics"> (NEGATIVE )</content> Urobilinogen 0.2-1.0 <content Saint [Units/volume] styleCode="Can [place] in Urine by d">Urine Medical Test strip Urobilinogen Center </content>0.2 MG/DL<content styleCode="Petra lics"> (0.2-1.0 MG/DL)</conten t> Nitrite NEGATIVE <content Saint [Presence] in styleCode="Can [place] Urine by Test d">Urine Medical strip Nitrite Center </content>NEGA TIVE <content styleCode="Petra lics"> (NEGATIVE )</content> Protein NEGATIVE <content Saint [Mass/volume] styleCode="Can [place] in Urine by d">Urine Medical Test strip Protein Center </content>NEGA TIVE MG/DL<content styleCode="Petra lics"> (NEGATIVE MG/DL)</conten t> ID Date Data Source HematologyRou.[id number] 08/19/2019 08:57:00 AM EDT [facility] 0400 Name Value Range Interpretation Description Data Sup porting Code Source(s) Document(s ) Leukocytes 4.4-11.0 <content Saint [#/volume] in styleCode="Bold Kath Blood by ">White Blood Medical Automated count Cell Count Center </content>6.64 KCUMM<content styleCode="Ital ics"> (4.4-11.0 KCUMM)</content > Erythrocytes 4.4-5.9 <content Saint [#/volume] in styleCode="Bold Kath Blood by ">Red Blood Medical Automated count Cell Count Center </content>5.59 MCUMM<content styleCode="Ital ics"> (4.4-5.9 MCUMM)</content > Hemoglobin 13.5-17. <content Saint [Mass/volume] in 5 styleCode="Bold Kath Blood ">Hemoglobin Medical </content>14.5 Center G/DL<content styleCode="Ital ics"> (13.5-17.5 G/DL)</content> Erythrocyte mean 80.0-100 <content Saint corpuscular .0 styleCode="Bold Kath volume [Entitic ">Mean Medical volume] by Corpuscular Center Automated count Volume </content>80.9 FL<content styleCode="Ital ics"> (80.0-100.0 FL)</content> Hematocrit 41.0-53. <content Saint [Volume 0 styleCode="Bold Kath Fraction] of ">Hematocrit Medical Blood by </content>45.2 Center Automated count %<content styleCode="Ital ics"> (41.0-53.0 %)</content> Erythrocyte mean 26.0-34. Below low normal <content Saint corpuscular 0 styleCode="Bold Kath hemoglobin ">Mean Medical [Entitic mass] Corposcular Center by Automated Hemoglobin count </content>25.9 PG L<content styleCode="Ital ics"> (26.0-34.0 PG)</content> Erythrocyte mean 32.0-37. <content Saint corpuscular 0 styleCode="Bold Kath hemoglobin ">Mean Corpus. Medical concentration Hgb Center [Mass/volume] by Concentration Automated count (MCHC) </content>32.1 G/DL<content styleCode="Ital ics"> (32.0-37.0 G/DL)</content> UNK 0 <content Saint styleCode="Bold Kath ">Nucleated Red Medical Blood Cell Center </content>0.0 /100<content styleCode="Ital ics"> (0 /100)</content> Erythrocyte 11.5-14. <content Saint distribution 5 styleCode="Bold Kath width [Ratio] by ">Red Cell Medical Automated count Distribution Center Width </content>13.4 %<content styleCode="Ital ics"> (11.5-14.5 %)</content> Platelets 130-400 <content Saint [#/volume] in styleCode="Bold Kath Blood by ">Platelet Medical Automated count Count Center </content>245 KCUMM<content styleCode="Ital ics"> (130-400 KCUMM)</content > Platelet mean 8.0-11.0 <content Saint volume [Entitic styleCode="Bold Kath volume] in Blood ">Mean Platelet Medical by Automated Volume Center count </content>10.1 FL<content styleCode="Ital ics"> (8.0-11.0 FL)</content> UNK 0.0 <content Saint styleCode="Bold Kath ">Nucleated Red Medical Blood Cell Center Count </content>0.00 KCUMM<content styleCode="Ital ics"> (0.0 KCUMM)</content > ID Date Data Source GFR(Creatinine).[id number] 08/19/2019 08:57:00 AM EDT [facility] 0-0400 Name Value Range Interpretation Code Description Data Aury rce(s) Supporting Document(s ) UNK > 60 <content [facility] styleCode="Bold"> Medical Cent er EGFR </content>96 GFR<content styleCode="Italic s"> (> 60 GFR)</content> ID Date Data Source [id number] 08/19/2019 08:57:00 AM EDT [facility] Name Value Range Interpretation Description Data Sup porting Code Source(s) Document(s ) Sodium 137-145 <content Saint [Moles/volume] styleCode="Can Kath in Serum or d">Sodium Medical Plasma </content>140 Center MEQ/L<content styleCode="Petra lics"> (137-145 MEQ/L)</conten t> Chloride 98-107 <content Saint [Moles/volume] styleCode="Can Kath in Serum or d">Chloride Medical Plasma </content>104 Center MEQ/L<content styleCode="Petra lics"> (98-107 MEQ/L)</conten t> UNK 9-20 Above high normal <content Saint styleCode="Can Kath d">BUN Medical </content>21 Center MG/DL H<content styleCode="Petra lics"> (9-20 MG/DL)</conten t> Potassium 3.5-5.3 <content Saint [Moles/volume] styleCode="Can Kath in Serum or d">Potassium Medical Plasma </content>4.0 Center MEQ/L<content styleCode="Petra lics"> (3.5-5.3 MEQ/L)</conten t> Creatinine 0.5-1.3 <content Saint [Mass/volume] styleCode="Can Kath in Serum or d">Creatinine Medical Plasma </content>1.2 Center MG/DL<content styleCode="Petra lics"> (0.5-1.3 MG/DL)</conten t> Carbon 22-30 <content Saint dioxide, total styleCode="Can Kath [Moles/volume] d">Carbon Medical in Serum or Dioxide Center Plasma </content>30 MEQ/L<content styleCode="Petra lics"> (22-30 MEQ/L)</conten t> Calcium 8.4-10.2 <content Saint [Mass/volume] styleCode="Can [place] in Serum or d">Calcium Medical Plasma </content>9.6 Center MG/DL<content styleCode="Petra lics"> (8.4-10.2 MG/DL)</conten t> UNK > 60 <content Saint styleCode="Can Kath d">EGFR Medical </content>96 Center GFR<content styleCode="Petra lics"> (> 60 GFR)</content> Glucose 74-106 <content Saint [Mass/volume] styleCode="Can [place] in Serum or d">Glucose Medical Plasma </content>94 Center MG/DL<content styleCode="Petra lics"> (74-106 MG/DL)</conten t> ID Date Data Source HematologyRou.[id number] 08/08/2019 10:37:00 PM EST [facility] Name Value Range Interpretation Description Data Sup porting Code Source(s) Document(s ) Hemoglobin 13.5-17. <content Saint [Mass/volume] in 5 styleCode="Bold [facility] Blood ">Hemoglobin Medical </content>14.3 Center G/DL<content styleCode="Ital ics"> (13.5-17.5 G/DL)</content> Hematocrit 41.0-53. <content Saint [Volume 0 styleCode="Bold Kath Fraction] of ">Hematocrit Medical Blood by </content>43.3 Center Automated count %<content styleCode="Ital ics"> (41.0-53.0 %)</content> Erythrocytes 4.4-5.9 <content Saint [#/volume] in styleCode="Bold Kath Blood by ">Red Blood Medical Automated count Cell Count Center </content>5.37 MCUMM<content styleCode="Ital ics"> (4.4-5.9 MCUMM)</content > Leukocytes 4.4-11.0 <content Saint [#/volume] in styleCode="Bold Kath Blood by ">White Blood Medical Automated count Cell Count Center </content>7.63 KCUMM<content styleCode="Ital ics"> (4.4-11.0 KCUMM)</content > Erythrocyte 11.5-14. <content [facility] distribution 5 styleCode="Bold Kath width [Ratio] by ">Red Cell Medical Automated count Distribution Center Width </content>13.3 %<content styleCode="Ital ics"> (11.5-14.5 %)</content> Erythrocyte mean 32.0-37. <content [facility] corpuscular 0 styleCode="Bold Kath hemoglobin ">Mean Corpus. Medical concentration Hgb Center [Mass/volume] by Concentration Automated count (MCHC) </content>33.0 G/DL<content styleCode="Ital ics"> (32.0-37.0 G/DL)</content> Erythrocyte mean 26.0-34. <content [facility] corpuscular 0 styleCode="Bold Kath hemoglobin ">Mean Medical [Entitic mass] Corposcular Center by Automated Hemoglobin count </content>26.6 PG<content styleCode="Ital ics"> (26.0-34.0 PG)</content> Erythrocyte mean 80.0-100 <content [facility] corpuscular .0 styleCode="Bold Kath volume [Entitic ">Mean Medical volume] by Corpuscular Center Automated count Volume </content>80.6 FL<content styleCode="Ital ics"> (80.0-100.0 FL)</content> Platelets 130-400 <content Saint [#/volume] in styleCode="Bold Kath Blood by ">Platelet Medical Automated count Count Center </content>257 KCUMM<content styleCode="Ital ics"> (130-400 KCUMM)</content > UNK 0 <content Saint styleCode="Bold Kath ">Nucleated Red Medical Blood Cell Center </content>0.0 /100<content styleCode="Ital ics"> (0 /100)</content> Platelet mean 8.0-11.0 <content Saint volume [Entitic styleCode="Bold Kath volume] in Blood ">Mean Platelet Medical by Automated Volume Center count </content>10.5 FL<content styleCode="Ital ics"> (8.0-11.0 FL)</content> UNK 0.0 <content Saint styleCode="Bold Kath ">Nucleated Red Medical Blood Cell Center Count </content>0.00 KCUMM<content styleCode="Ital ics"> (0.0 KCUMM)</content > ID Date Data Source GFR(Creatinine).[id number] 08/08/2019 10:37:00 PM EST [facility] 0-0500 Name Value Range Interpretation Code Description Data Aury rce(s) Supporting Document(s ) UNK > 60 <content [facility] [place] styleCode="Bold"> Medical Cent er EGFR </content>79 GFR<content styleCode="Italic s"> (> 60 GFR)</content> ID Date Data Source CardiacMarkers.[id number] 08/08/2019 10:37:00 PM EST [facility] -0500 Name Value Range Interpretation Description Data Sup porting Code Source(s) Document(s ) Troponin < 0.034 <content Saint I.cardiac styleCode="Bold Kath [Mass/volume ">Troponin I Medical ] in Serum </content>< Center or Plasma 0.012 NG/ML<content styleCode="Ital ics"> (< 0.034 NG/ML)</content > ID Date Data Source [id number] 08/08/2019 10:37:00 PM EST [facility] Name Value Range Interpretation Description Data Sup porting Code Source(s) Document(s ) Potassium 3.5-5.3 <content Saint [Moles/volume] styleCode="Can [place] in Serum or d">Potassium Medical Plasma </content>4.4 Center MEQ/L<content styleCode="Petra lics"> (3.5-5.3 MEQ/L)</conten t> Chloride 98-107 <content Saint [Moles/volume] styleCode="Can Kath in Serum or d">Chloride Medical Plasma </content>102 Center MEQ/L<content styleCode="Petra lics"> (98-107 MEQ/L)</conten t> Sodium 137-145 Below low normal <content Saint [Moles/volume] styleCode="Can Kath in Serum or d">Sodium Medical Plasma </content>136 Center MEQ/L L<content styleCode="Petra lics"> (137-145 MEQ/L)</conten t> UNK 9-20 <content Saint styleCode="Can Kath d">BUN Medical </content>20 Center MG/DL<content styleCode="Petra lics"> (9-20 MG/DL)</conten t> Creatinine 0.5-1.3 <content Saint [Mass/volume] styleCode="Can Kath in Serum or d">Creatinine Medical Plasma </content>1.2 Center MG/DL<content styleCode="Petra lics"> (0.5-1.3 MG/DL)</conten t> Carbon 22-30 <content Saint dioxide, total styleCode="Can Kath [Moles/volume] d">Carbon Medical in Serum or Dioxide Center Plasma </content>24 MEQ/L<content styleCode="Petra lics"> (22-30 MEQ/L)</conten t> Glucose 74-106 <content Saint [Mass/volume] styleCode="Cna Kath in Serum or d">Glucose Medical Plasma </content>95 Center MG/DL<content styleCode="Petra lics"> (74-106 MG/DL)</conten t> Calcium 8.4-10.2 <content Saint [Mass/volume] styleCode="Can Kath in Serum or d">Calcium Medical Plasma </content>9.9 Center MG/DL<content styleCode="Petra lics"> (8.4-10.2 MG/DL)</conten t> UNK > 60 <content Saint styleCode="Can Kath d">EGFR Medical </content>79 Center GFR<content styleCode="Petra lics"> (> 60 GFR)</content> Procedure Social History Code Duration Value Status Description Data Source(s ) Smoking 03/26/2020 Former Smoker completed Former Smoker [facility] [place] [facility] 01:43:00 PM EDT Medical C enter Smoking 03/26/2020 Former Smoker completed Former Smoker [facility] Luz Elena sephs 12:55:00 PM EDT Medical C enter Smoking 03/26/2020 Former Smoker completed Former Smoker [facility] [place] [facility] 12:55:00 PM EDT Medical C enter Smoking 03/25/2020 Denies Ever completed Denies Ever [place] s 11:22:00 PM EDT Smoked Smoked Medical C enter Smoking 03/25/2020 Denies Ever completed Denies Ever [place] [facility] 02:26:00 PM EDT Smoked Smoked Medical C enter Smoking 03/25/2020 Denies Ever completed Denies Ever [place] [facility] 02:20:00 PM EDT Smoked Smoked Medical C enter Smoking 03/25/2020 Denies Ever completed Denies Ever [place] s 02:05:00 PM EDT Smoked Smoked Medical C enter Caffeine Use 03/10/2020 completed NEXTGEN (Jose Luis nt Details 12:00:00 AM EDT [facility]) Smoking 03/10/2020 Unknown if completed Unknown if ever NEXTGEN ( Saint 12:00:00 AM EDT ever smoked smoked [facility]) 02/22/2020 Never smoked completed Never smoked NEXTGEN (S aint 12:00:00 AM EDT tobacco tobacco [facility]) Smoking 01/18/2020 Denies Ever completed Denies Ever [place] [facility] 08:30:00 PM EDT Smoked Smoked Medical C enter Smoking 01/18/2020 Denies Ever completed Denies Ever [place] [facility] 08:25:00 PM EDT Smoked Smoked Medical C enter Caffeine Use 12/03/2019 completed NEXTGEN (Jose Luis nt Details 12:00:00 AM EDT [facility] Smoking 12/02/2019 Denies Ever completed Denies Ever [facility] Mauro s 07:33:00 PM EDT Smoked Smoked Medical C enter Smoking 12/02/2019 Denies Ever completed Denies Ever [facility] Mauro s 07:33:00 PM EDT Smoked Smoked Medical C enter Smoking 11/30/2019 Denies Ever completed Denies Ever [facility] Mauro s 08:35:00 PM EDT Smoked Smoked Medical C enter Smoking 11/30/2019 Denies Ever completed Denies Ever [place] 06:36:00 PM EDT Smoked Smoked Medical C enter Smoking 11/30/2019 Denies Ever completed Denies Ever [facility] Mauro s 06:11:00 PM EDT Smoked Smoked Medical C enter Smoking 11/28/2019 Denies Ever completed Denies Ever [facility] Mauro s 05:26:00 AM EDT Smoked Smoked Medical C enter Smoking 11/28/2019 Denies Ever completed Denies Ever [facility] Mauro s 03:52:00 AM EDT Smoked Smoked Medical C enter Smoking 11/28/2019 Denies Ever completed Denies Ever [place] 01:36:00 AM EDT Smoked Smoked Medical C enter Smoking 10/11/2019 Denies Ever completed Denies Ever [facility] Mauro s 11:05:00 AM EDT Smoked Smoked Medical C enter Smoking 10/11/2019 Denies Ever completed Denies Ever [facility] Mauro s 10:45:00 AM EDT Smoked Smoked Medical C enter Smoking 10/11/2019 Denies Ever completed Denies Ever [facility] Mauro s 10:34:00 AM EDT Smoked Smoked Medical C enter Smoking 09/12/2019 Denies Ever completed Denies Ever [place] 07:52:00 PM EDT Smoked Smoked Medical C enter Smoking 08/20/2019 Denies Ever completed Denies Ever [place] [facility] 04:39:00 PM EDT Smoked Smoked Medical C enter Smoking 08/20/2019 Denies Ever completed Denies Ever [place] [facility] 03:44:00 PM EDT Smoked Smoked Medical C enter Smoking 08/19/2019 Denies Ever completed Denies Ever [place] [facility] 08:49:00 AM EDT Smoked Smoked Medical C enter Smoking 08/19/2019 Denies Ever completed Denies Ever [place] [facility] 08:30:00 AM EDT Smoked Smoked Medical C enter Smoking 08/19/2019 Denies Ever completed Denies Ever [place] [facility] 07:40:00 AM EDT Smoked Smoked Medical C enter Smoking 08/17/2019 Denies Ever completed Denies Ever [facility] [place] hazel 07:31:00 AM EST Smoked Smoked Medical C enter Smoking 08/17/2019 Denies Ever completed Denies Ever Saint Mauro s 06:20:00 AM EST Smoked Smoked Medical C enter Smoking 08/09/2019 Denies Ever completed Denies Ever [facility] [place] hazel 12:37:00 AM EST Smoked Smoked Medical C enter Smoking 08/08/2019 Denies Ever completed Denies Ever [facility] Mauro s 10:18:00 PM EST Smoked Smoked Medical C enter Smoking 08/08/2019 Denies Ever completed Denies Ever [facility] Mauro s 10:02:00 PM EST Smoked Smoked Medical C enter Smoking 06/30/2019 Denies Ever completed Denies Ever Saint Mauro s 08:58:00 PM EST Smoked Smoked Medical C enter Smoking 06/30/2019 Denies Ever completed Denies Ever [facility] [place] hazel 08:18:00 PM EST Smoked Smoked Medical C enter Smoking 06/30/2019 Denies Ever completed Denies Ever Saint Mauro s 08:08:00 PM EST Smoked Smoked Medical C enter Smoking 02/26/2019 Denies Ever completed Denies Ever [facility] [place] hazel 09:30:00 PM EDT Smoked Smoked Medical C enter Smoking 02/26/2019 Denies Ever completed Denies Ever [facility] [place] hazel 09:30:00 PM EDT Smoked Smoked Medical C enter Smoking 02/26/2019 Denies Ever completed Denies Ever Saint Mauro s 09:05:00 PM EDT Smoked Smoked Medical C enter Vital Signs ID Date Data Source UNK Name Value Range Interpretation Code Description Data Source(s) Body weight 140.397723 140.591759 kg [facility] Measured kg [facility] Body temperature 36.029696 36.421741 Anabel [facility] Respiratory rate 19 /min 19 /min [facility] Oxygen saturation 97 % 97 % [facility] Ramez dumont in Arterial blood [facility] by Pulse oximetry Heart rate 88 /min 88 /min [facility] Body height 182.182581 182.478576 cm [facility] Diastolic blood 85 mm[Hg] 85 mm[Hg] [facility] pressure Medical Center Systolic blood 146 mm[Hg] 146 mm[Hg] [facility] pressure [facility] Body mass index 41.8 kg/m2 41.8 kg/m2 [facility] (BMI) [Ratio] Medical [facility] ter Body temperature 36.841753 36.526856 Anabel [facility] Respiratory rate 18 /min 18 /min [facility] Oxygen saturation 100 % 100 % [facility] J osephs in Arterial blood [facility] by Pulse oximetry Heart rate 79 /min 79 /min [facility] Diastolic blood 69 mm[Hg] 69 mm[Hg] [facility] pressure [facility] Systolic blood 139 mm[Hg] 139 mm[Hg] [facility] Body weight 132.280052 132.399382 kg [facility] Measured kg [facility] Body temperature 36.901230 36.504265 Anabel [facility] Respiratory rate 18 /min 18 /min [facility] Oxygen saturation 100 % 100 % [facility] J osephs in [facility] by Pulse oximetry Heart rate 78 /min 78 /min [facility] Body height 183.159337 183.017638 cm [facility] Diastolic blood 66 mm[Hg] 66 mm[Hg] [facility] Systolic blood 141 mm[Hg] 141 mm[Hg] [facility] Body mass index 39.4 kg/m2 39.4 kg/m2 [facility] (BMI) [Ratio] Medical [facility] ter Heart rate 70 /min 70 /min [facility] ([facility]) Diastolic blood 83 mm[Hg] 83 mm[Hg] [facility] ( [facility]) Systolic blood 130 mm[Hg] 130 mm[Hg] [facility] (S aint [facility]) Oxygen saturation 100 % 100 % [facility] ([facility] in Arterial blood [facility] by Pulse oximetry Center) Body mass index 39.06 kg/m2 Overweight 39.06 kg/m2 [facility]EXT[facility] ([facility] (BMI) [Ratio] [facility]) Respiratory rate 18 /min 18 /min [facility] ([facility]) Body temperature 36.50 Anabel 36.50 Anabel [facility] ([facility]) Heart rate 67 /min 67 /min [facility] ([facility]) Diastolic blood 83 mm[Hg] 83 mm[Hg] [facility] ( [facility]) Systolic blood 140 mm[Hg] 140 mm[Hg] [facility]EXTGEN (S nt pressure [facility]) Body weight 130.635 kg 130.635 kg [facility] ([facility]) Body height 182.88 cm 182.88 cm [facility]) Oxygen saturation 99 % 99 % [facility] ([facility] in Arterial blood [facility] by Pulse oximetry Center) Body mass index 39.17 kg/m2 Overweight 39.17 kg/m2 [facility] ([facility] (BMI) [Ratio] [facility]) Respiratory rate 18 /min 18 /min [facility] ([facility]) Body temperature 37.00 Anabel 37.00 Anabel [facility]) Heart rate 81 /min 81 /min [facility] ([facility]) Diastolic blood 75 mm[Hg] 75 mm[Hg] [facility] ( [facility]) Systolic blood 127 mm[Hg] 127 mm[Hg] [facility] (S [facility]) Body weight 130.997 kg 130.997 kg [facility]) Body height 182.88 cm 182.88 cm [facility]) Oxygen saturation 99 % 99 % [facility] ([facility] in Arterial blood [facility] by Pulse oximetry Center) Body mass index 39.06 kg/m2 Overweight 39.06 kg/m2 [facility] ([facility] (BMI) [Ratio] [facility]) Respiratory rate 19 /min 19 /min [facility] ([facility]) Body temperature 36.56 Anabel 36.56 Anabel [facility]) Heart rate 84 /min 84 /min [facility] ([facility]) Diastolic blood 67 mm[Hg] 67 mm[Hg] [facility]EXT[facility] ( [facility]) Systolic blood 112 mm[Hg] 112 mm[Hg] [facility]EXT[facility] (S aint pressure [facility]) Body weight 130.635 kg 130.635 kg [facility]) Body height 182.88 cm 182.88 cm [facility]) Oxygen saturation 96 % 96 % [facility] ([facility] in Arterial [facility] by Pulse oximetry Center) Body mass index 38.92 kg/m2 Overweight 38.92 kg/m2 [facility] ([facility] (BMI) [Ratio] [facility]) Respiratory rate 18 /min 18 /min [facility] ([facility]) Body temperature 36.78 Anabel 36.78 Anabel [facility] ([facility]) Heart rate 72 /min 72 /min [facility] ([facility]) Diastolic blood 91 mm[Hg] 91 mm[Hg] [facility] ( [facility]) Systolic blood 151 mm[Hg] 151 mm[Hg] [facility]) Body weight 130.181 kg 130.181 kg [facility] ([facility]) Body height 182.88 cm 182.88 cm [facility] ([facility]) Oxygen saturation 97 % 97 % [facility]EXT[facility] ([facility] by Pulse oximetry Center) Body mass index 38.87 kg/m2 Overweight 38.87 kg/m2 [facility]EXT[facility] ([facility] (BMI) [Ratio] [facility]) Respiratory rate 19 /min 19 /min [facility] ([facility]) Body temperature 36.67 Anabel 36.67 Anabel [facility] ([facility]) Heart rate 80 /min 80 /min [facility] ([facility]) Diastolic blood 75 mm[Hg] 75 mm[Hg] [facility] ( [facility]) Systolic blood 134 mm[Hg] 134 mm[Hg] [facility]S [facility]) Body weight 130.000 kg 130.000 kg [facility]) Body height 182.88 cm 182.88 cm [facility] CENTER ([facility]) Body temperature 36.145809 36.437784 [facility] Respiratory rate 19 /min 19 /min [facility] Oxygen saturation 99 % 99 % [facility] tim in [facility] by Pulse oximetry Heart rate 91 /min 91 /min [facility] Diastolic blood 95 mm[Hg] 95 mm[Hg] [facility] Systolic blood 148 mm[Hg] 148 mm[Hg] [facility] Body weight 127.885103 127.911289 kg [facility] Measured kg Medical Center Body temperature 36.642069 36.378180 [facility] Respiratory rate 20 /min 20 /min [facility] Oxygen saturation 100 % 100 % [facility] Arterial blood Medical Center by Pulse oximetry Heart rate 94 /min 94 /min [facility] Body height 185.540850 185.041599 cm [facility] Medical [place] Diastolic blood 114 mm[Hg] 114 mm[Hg] [facility] Systolic blood 168 mm[Hg] 168 mm[Hg] [facility] Body mass index 36.9 kg/m2 36.9 kg/m2 [facility] (BMI) [Ratio] Medical [facility] Body weight 130.373685 130.312681 kg [facility] Measured kg Medical Center Body temperature 36.469645 36.397074 [facility] Respiratory rate 18 /min 18 /min [facility] Oxygen saturation 100 % 100 % [facility] Arterial blood [facility] by Pulse oximetry Heart rate 65 /min 65 /min [facility] Body height 70.227693 70.823544 cm [facility] Diastolic blood 93 mm[Hg] 93 mm[Hg] [facility] Systolic blood 168 mm[Hg] 168 mm[Hg] [facility] Body mass index 257.8 kg/m2 257.8 kg/m2 [facility] (BMI) [Ratio] Medical [facility] ter Body weight 131.677048 131.877641 kg [facility] Measured kg Medical Center Body weight 130.564088 130.968607 kg [facility] Measured kg Medical Center Body temperature 37.613242 37.743720 [facility] Respiratory rate 20 /min 20 /min [facility] Respiratory rate 20 /min 20 /min [facility] Oxygen saturation 100 % 100 % [facility] Arterial blood Medical Center by Pulse oximetry Oxygen saturation 99 % 99 % [facility] Arterial blood [facility] Center by Pulse oximetry Heart rate 80 /min 80 /min [facility] Heart rate 82 /min 82 /min [facility] Body height 185.086400 185.335597 cm [facility] Body height 70.418676 70.982839 cm [facility] cm Medical Center Diastolic blood 86 mm[Hg] 86 mm[Hg] [facility] pressure Medical Center Systolic blood 154 mm[Hg] 154 mm[Hg] [facility] pressure [facility] Diastolic blood 88 mm[Hg] 88 mm[Hg] [facility] pressure Medical Center Systolic blood 156 mm[Hg] 156 mm[Hg] [facility] Body mass index 38.2 kg/m2 38.2 kg/m2 [facility] (BMI) [Ratio] Medical [facility] ter Body mass index 257.8 kg/m2 257.8 kg/m2 [facility] (BMI) [Ratio] Medical [facility] ter Body temperature 36.368467 36.212951 [facility] Respiratory rate 18 /min 18 /min [facility] Oxygen saturation 100 % 100 % [facility] Arterial blood [facility] Center by Pulse oximetry Heart rate 64 /min 64 /min [facility] Diastolic blood 83 mm[Hg] 83 mm[Hg] [facility] Systolic blood 139 mm[Hg] 139 mm[Hg] [facility] Body weight 130.350771 130.613565 kg [facility] Measured kg Medical Center Body temperature 36.712545 36.808270 [facility] Respiratory rate 20 /min 20 /min [facility] Oxygen saturation 99 % 99 % [facility] Arterial blood [facility] by Pulse oximetry Heart rate 71 /min 71 /min [facility] Body height 70.793755 70.223963 cm [facility] Diastolic blood 74 mm[Hg] 74 mm[Hg] [facility] Systolic blood 134 mm[Hg] 134 mm[Hg] [facility] Body mass index 257.8 kg/m2 257.8 kg/m2 [facility] (BMI) [Ratio] Medical [facility] ter Body weight 95.602108 95.038796 kg [facility] [facility] Measured kg Medical Center Body temperature 36.716496 36.798506 [facility] Respiratory rate 18 /min 18 /min [facility] Oxygen saturation 98 % 98 % [facility] by Pulse oximetry Heart rate 76 /min 76 /min [facility] Body height 177.561251 177.812490 cm [facility] Diastolic blood 85 mm[Hg] 85 mm[Hg] [facility] Systolic blood 144 mm[Hg] 144 mm[Hg] [facility] Body mass index 30.0 kg/m2 30.0 kg/m2 [facility] (BMI) [Ratio] Medical [facility] ter Body temperature 36.796043 36.348182 [facility] Respiratory rate 17 /min 17 /min [facility] Oxygen saturation 97 % 97 % [facility] by Pulse oximetry Heart rate 86 /min 86 /min [facility] Diastolic blood 88 mm[Hg] 88 mm[Hg] [facility] Systolic blood 163 mm[Hg] 163 mm[Hg] [facility] Body weight 138.581407 138.665161 kg [facility] Measured kg [facility] Body temperature 36.998782 36[address]419[address] [facility] Respiratory rate 18 /min 18 /min [facility] Oxygen saturation 99 % 99 % [facility] by Pulse oximetry Heart rate 78 /min 78 /min [facility] Body height 185.445955 185.052074 cm [facility] Diastolic blood 76 mm[Hg] 76 mm[Hg] [facility] Systolic blood 146 mm[Hg] 146 mm[Hg] [facility] Body mass index 40.1 kg/m2 40.1 kg/m2 [facility] (BMI) [Ratio] Medical [facility] [facility] Diastolic blood 84 {} Normal (applies to 84 {} [place] pressure non-numeric results) [facility] Systolic blood 127 {} Normal (applies to 127 {} [place] pressure non-numeric results) [facility] First Respiration 20.0000 {} Normal (applies to 20.0000 {} [place] rate Set non-numeric results) [facility] Heart rate 60.0000 {} Normal (applies to 60.0000 {} [place] non-numeric results) [facility] Body temperature 97.0000 {} Normal (applies to 97.0000 {} [place] non-numeric results) [facility] wt - obtain Normal (applies to {} [place] non-numeric results) [facility] weight - kg 124.6000 {} Normal (applies to 124.6000 {} [place] non-numeric results) [facility] Body weight 121.515364 121.307075 kg [facility] Measured kg Medical Center Body temperature 36.421934 36.6067[address] [facility] Respiratory rate 18 /min 18 /min [facility] Oxygen saturation 98 % 98 % [facility] Arterial blood [facility] by Pulse oximetry Heart rate 77 /min 77 /min [facility] Diastolic blood 72 mm[Hg] 72 mm[Hg] [facility] Systolic blood 131 mm[Hg] 131 mm[Hg] [facility] Respiratory rate 15 /min 15 /min [facility] Oxygen saturation 100 % 100 % [facility] Arterial blood [facility] by Pulse oximetry Heart rate 61 /min 61 /min [facility] Diastolic blood 70 mm[Hg] 70 mm[Hg] [facility] Systolic blood 128 mm[Hg] 128 mm[Hg] [facility] Body temperature 36.586530 36.3573[address] [facility] Respiratory rate 18 /min 18 /min [facility] Oxygen saturation 99 % 99 % [facility] blood [facility] by Pulse oximetry Heart rate 71 /min 71 /min [facility] Diastolic blood 77 mm[Hg] 77 mm[Hg] [facility] Systolic blood 134 mm[Hg] 134 mm[Hg] [facility] Body weight 122.263005 122.227065 kg [facility] Measured kg Medical Center Body temperature 37.833947 37.528[address] [facility] Respiratory rate 18 /min 18 /min [facility] Oxygen saturation 98 % 98 % [facility] blood [facility] by Pulse oximetry Heart rate 78 /min 78 /min [facility] Body height 183.704909 183.441336 cm [facility] Diastolic blood 74 mm[Hg] 74 mm[Hg] [facility] pressure Medical Center Systolic blood 121 mm[Hg] 121 mm[Hg] [facility] Body mass index 36.4 kg/m2 36.4 kg/m2 [facility] (BMI) [Ratio] Medical [facility] Body temperature 37.935536 37.3769[address] [facility] Respiratory rate 18 /min 18 /min [facility] Oxygen saturation 99 % 99 % [facility] Arterial blood [facility] Center by Pulse oximetry Heart rate 66 /min 66 /min [facility] Diastolic blood 88 mm[Hg] 88 mm[Hg] [facility] Systolic blood 152 mm[Hg] 152 mm[Hg] [facility] Body temperature 37.738314 37.677618 [facility] Respiratory rate 17 /min 17 /min [facility] Heart rate 65 /min 65 /min [facility] Diastolic blood 92 mm[Hg] 92 mm[Hg] [facility] Systolic blood 159 mm[Hg] 159 mm[Hg] [facility] Body weight 100.096806 100.089192 kg [facility] Measured kg Medical Center Body temperature 36.888138 36.264747 [facility] Respiratory rate 18 /min 18 /min [facility] Oxygen saturation 98 % 98 % [facility] blood [facility] Center by Pulse oximetry Heart rate 78 /min 78 /min [facility] Body height 180.165533 180.823287 cm [facility] Diastolic blood 86 mm[Hg] 86 mm[Hg] [facility] Systolic blood 135 mm[Hg] 135 mm[Hg] [facility] Body mass index 30.7 kg/m2 30.7 kg/m2 [facility] (BMI) [Ratio] Medical [facility] Body temperature 36.609065 36.527567 [facility] Respiratory rate 18 /min 18 /min [facility] Oxygen saturation 99 % 99 % [facility] blood [facility] by Pulse oximetry Heart rate 82 /min 82 /min [facility] Diastolic blood 82 mm[Hg] 82 mm[Hg] [facility] Systolic blood 141 mm[Hg] 141 mm[Hg] [facility] Body weight 123.484859 123.484254 kg [facility] Measured kg Medical Center Respiratory rate 19 /min 19 /min [facility] Oxygen saturation 98 % 98 % [facility] in Arterial blood Medical Center by Pulse oximetry Heart rate 70 /min 70 /min [facility] Body height 185.803486 185.529687 cm [facility] Medical [place] Diastolic blood 85 mm[Hg] 85 mm[Hg] [facility] Systolic blood 139 mm[Hg] 139 mm[Hg] [facility] Body mass index 35.8 kg/m2 35.8 kg/m2 [facility] (BMI) [Ratio] Medical [facility] Body weight 121.724071 121.163138 kg [facility] Measured kg Medical Center Body temperature 37.832695 37.239161 [facility] Respiratory rate 16 /min 16 /min [facility] Oxygen saturation 99 % 99 % [facility] in Arterial blood [facility] Center by Pulse oximetry Heart rate 76 /min 76 /min [facility] Body height 182.236933 182.644269 cm [facility] Diastolic blood 70 mm[Hg] 70 mm[Hg] [facility] Systolic blood 145 mm[Hg] 145 mm[Hg] [facility] Body mass index 36.3 kg/m2 36.3 kg/m2 [facility] (BMI) [Ratio] Medical [facility] Body temperature 36.545128 36.5064[address] [facility] Respiratory rate 18 /min 18 /min [facility] Oxygen saturation 98 % 98 % [facility] in Arterial blood [facility] Center by Pulse oximetry Heart rate 67 /min 67 /min [facility] Diastolic blood 77 mm[Hg] 77 mm[Hg] [facility] Systolic blood 137 mm[Hg] 137 mm[Hg] [facility] Body weight 112.136347 112.549614 kg [facility] Measured kg Medical Center Body temperature 36.4968[address] Respiratory rate 18 /min 18 /min [facility] Oxygen saturation 100 % 100 % [facility]z osephs in Arterial blood [facility] Center by Pulse oximetry Heart rate 89 /min 89 /min [facility] Body height 183.777456 183.890691 cm [facility] Diastolic blood 96 mm[Hg] 96 mm[Hg] [facility] pressure [facility] Systolic blood 160 mm[Hg] 160 mm[Hg] [facility] Body mass index 33.4 kg/m2 33.4 kg/m2 [facility] (BMI) [Ratio] Medical [facility] ter Body weight 120.265161 120.248521 kg [facility] Measured kg Medical Center Body temperature 36.401632 36[address] [facility] Respiratory rate 19 /min 19 /min [facility] Oxygen saturation 98 % 98 % [facility] Ramez osephs in Arterial blood [facility] Center by Pulse oximetry Heart rate 84 /min 84 /min [facility] Diastolic blood 97 mm[Hg] 97 mm[Hg] [facility] Systolic blood 158 mm[Hg] 158 mm[Hg] [facility] Patient Treatment Plan of Care Planned Activity Planned Date Details Description Data Source (s) Acetaminophen 325 MG Oral 03/04/2020 12:00:00 NEXTGEN ([facility] Capsule [facility]) Flonase Allergy Relief 50 03/04/2020 12:00:00 NEXTGEN (Saint mcg/actuation nasal [facility] spray,suspension [place]) pantoprazole 40 MG 03/04/2020 12:00:00 NE XTGEN (Saint Delayed Release Oral [facility] Tablet [place]) 120 ACTUAT Fluticasone 01/25/2020 12:00:00 NEXTGEN ([facility] propionate 0.044 [facility] ical MG/ACTUAT Metered Dose Cente r) Inhaler [Flovent] 200 ACTUAT Albuterol 0.09 01/25/2020 12:00:00 NEXTGEN (Saint MG/ACTUAT Dry Powder [facility] Inhaler [ProAir] Center) Flonase Allergy Relief 50 01/25/2020 12:00:00 NEXTGEN (Saint mcg/actuation nasal [facility] Medical spray,suspension Center) Flonase Allergy Relief 50 10/02/2018 12:00:00 NEXTGEN ([facility] mcg/actuation nasal AM [facility] spray,suspension Center) 200 ACTUAT Albuterol 0.09 10/02/2018 12:00:00 NEXTGEN (Saint MG/ACTUAT Dry Powder [facility] Inhaler [ProAir] Center) Famotidine 20 MG Oral 09/25/2018 12:00:00 NEXTGEN (Saint Tablet [Pepcid] [facility] Center)
--- NOTE | 2020-03-26 16:59 | PDOC ---
History of Present Illness - General Chief Complaint: CVA/TIA Stated Complaint: LT ARM NUMBNES Time Seen by Provider: 03/26/20 15:21 History Source: Patient Exam Limitations: No Limitations - History of Present Illness Initial Comments: 03/26/20 16:54 This is a 24-year-old male with past medical history of migraines and pancreatitis with a recent endoscopy [address] Mccracken presented to the ED complaining of left-sided numbness and tingling since waking up from the endoscopy. Patient states he was seen and evaluated yesterday at [facility] emergency room and was given antibiotic eyedrops for a subconjunctival hematoma in the left eye which also incurred during the endoscopy. Patient states that this morning he woke up with a headache took 2 Tylenol with some mildly relieved the symptoms but they have since returned. Headache not associated with l acrimation, fever, vomiting, changes in vision, photophobia or neck stiffness; not maximal intensity at onset and non-exertional at onset. Patient states that he is experiencing numbness and tingling on the whole left side of his body from his arm to his toes. Pt otherwise denies: fevers, chills, syncope, lightheadedness, dizziness, neck pain, chest pain, shortness of breath, palpitations, back pain, abdominal pain, nausea, vomiting, diarrhea, constipation. Past History - Medical History Allergies/Adverse Reactions: Allergies Allergy/AdvReac Type Severity Reaction Status Date / Time No Known Allergies Allergy Verified 03/26/20 16:24 Home Medications: Ambulatory Orders Cyclobenzaprine HCl [Flexeril 10 mg] 10 mg PO BID PRN #30 tablet 03/26/20 Ibuprofen [Ibu] 600 mg PO TID #30 tablet 03/26/20 Pantoprazole Sodium 40 mg PO DAILY 03/26/20 Asthma: Yes COPD: No Other medical history: pacreatitis - Psycho-Social/Smoking History Smoking History: Never smoked Have you smoked in the past 12 months: No Information on smoking cessation initiated: No - Substance Abuse Hx (Audit-C & DAST Scrn) How often the patient has a drink containing alcohol: Never Score: In Men: 4 or > Positive; In Women: 3 or > Positive: 0 Screen Result (Pos requires Nsg. Audit-10AR): Negative In the last yr the pt used illegal drug/Rx for NonMed reason: No Score: Yes response is considered Positive: 0 Screen Result (Positive result requires Nsg. DAST-10): Negative *Physical Exam - Vital Signs Last Vital Signs Temp Pulse Resp BP Pulse Ox 98.0 F 83 17 140/86 100 03/26/20 15:37 03/26/20 15:37 03/26/20 15:37 03/26/20 15:37 03/26/20 15:37 - Physical Exam 03/26/20 16:56 Gen: AAOx 3, no acute distress, comfortable, no signs of respiratory distress HENT: atraumatic, normocephalic with no laceration or contusion. Nasal mucosa without erythema. Oropharynx without erythema or exudates. Mucous membranes moist. EYES: PERRL, EOM intact, conjunctiva pink NECK: supple; trachea midline; no JVD, no lymphadenopathy, or thyromegaly CV: RRR no murmurs, gallops, or rubs. CHEST: CTA b/l no wheezing, rales or rhonchi ABD: +BS/ND. no TTP; soft, no rebound, no guarding EXTREMITY: no cyanosis or erythema. 2+ dorsalis pedis, posterior tibial, and radial pulse. No pedal edema; no calf swelling or tenderness SKIN: no rash, warm and dry, no diaphoresis HEME: no purpura or ecchymosis NEURO: normal speech, CN II-XII intact, sensation intact however patient states that in his LUE the sensation although intact is not equal, normal gait, able to tip toe and heel walk, romberg and pronator drift absent, no cerebellar deficits, normal finger to nose, heel to roque, rapid alternating movements, no tremor, no dysmetria MS: 5/5 strength in all extremities, FROM intact in all extremities ED Treatment Course - LABORATORY CBC & Chemistry Diagram: 03/26/20 16:30 03/26/20 16:30 Medical Decision Making - Medical Decision Making 03/26/20 16:59 24-year-old male status post endoscopy complaining of left-sided numbness as well as left eye subconjunctival hematoma Vital signs stable Patient was brought in as a stroke code and received CT head immediately which was negative Labs were ordered and drawn pending results We will give Fioricet and Valium for symptomatic relief Most likely MSK in origin from endoscopy positioning however concern for head and neck vascular damage hence will obtain CTA head and neck EKG normal sinus rhythm without ST elevations or depressions Will reassess based on results Labs all within normal limits including negative troponin Only labs which are noncontributory in this case are the lipid panel with elevated triglycerides cholesterol and LDL UA negative Patient reports resolution of numbness and tingling in his left upper extremity with meds and that his headache has now resolved. Patient states that he would like to leave the ED and forego the further imaging. I explained to the patient that I strongly suggest that he waits for the imaging however he feels much better and states that he has a follow-up appoint with his PCP on Tuesday. I explained the risk first benefits and a shared decision-making conversation was completed patient agrees with close follow-up with both PCP and neurology. I will discharge patient with Flexeril and ibuprofen. Pt appears well and is safe and stable for discharge with strict return precautions including signs and symptoms requring immediate return to the ED Supportive care instructions explained and given to pt. Reasons to return emergently to ER explained and given. Importance of follow up with PMD and other specialists as indicated stressed to pt. Pt verbalized understanding of instructions. Pt to follow up with PMD in 2 days. Discharge - Discharge Information Problems reviewed: Yes Clinical Impression/Diagnosis: Numbness and tingling Condition: Stable Disposition: HOME - Additional Discharge Information Prescriptions: Cyclobenzaprine HCl [Flexeril 10 mg] 10 mg PO BID PRN #30 tablet PRN Reason: Back Pain Ibuprofen [Ibu] 600 mg PO TID #30 tablet - Follow up/Referral Referrals: Michele Mac MD [Staff Physician] - - Patient Discharge Instructions Patient Printed Discharge Instructions: DI for Cervical Radiculopathy Additional Instructions: IF YOUR SYMPTOMS RETURN COME BACK TO THE ER PLEASE FOLLOW UP WITH YOUR PCP AND NEUROLOGY - Post Discharge Activity
[2020-03-26 17:09] LABS: BASO % 0.6 % (0-2.0); EOS % 1.3 % (0-4.5); HEMOGLOBIN 15.3 GM/dL (11.7-16.9); LYMPH % 31.2 % (8-40); MCH 26.6 pg (25.7-33.7); MCHC 33.3 g/dl (32.0-35.9); MEAN CELL VOLUME 79.9 fl (80-96); MEAN PLT VOLUME 8.7 fl (7.5-11.1); MONO % 10.1 % (3.8-10.2); NEUT % 56.8 % (42.8-82.8); PLATELET COUNT 244 K/MM3 (134-434); RBC 5.76 M/mm3 (4.00-5.60); RDW 14.1 % (11.9-15.9); WHITE BLOOD COUNT 6.1 K/mm3 (4.0-10.0)
[2020-03-26 17:11] LABS: URINE APPEARANCE CLEAR; URINE BILIRUBIN NEGATIVE (NEGATIVE); URINE COLOR YELLOW; URINE GLUCOSE (UA) NEGATIVE (NEGATIVE); URINE KETONE NEGATIVE (NEGATIVE); URINE LEUK ESTERASE NEGATIVE (NEGATIVE); URINE NITRITE NEGATIVE (NEGATIVE); URINE PROTEIN NEGATIVE (NEGATIVE)
[2020-03-26 17:19] LABS: INR 1.02 (0.83-1.09); PROTHROMBIN TIME (PATIENT) 12.5 SEC (9.7-13.0)
[2020-03-26 17:22] LABS: ACTIVATED PTT 32.4 SECONDS (25.2-36.5)
[2020-03-26] MEDS ORDERED: ACETAMINOPHEN/CAFFEINE/BUTALBITAL 1 TAB PO ONE (17:28)
[2020-03-26] MEDS ORDERED: diazePAM CARPU-JECT 10 MG/2 ML DISP.SYRIN IVPUSH ONE (17:28)
[2020-03-26 17:31] LABS: ALBUMIN 3.9 g/dl (3.4-5.0); ALK PHOS 83 U/L (45-117); ANION GAP 5 MMOL/L (8-16); BILIRUBIN,TOTAL 0.3 mg/dL (0.2-1); BLOOD UREA NITROGEN 11.8 mg/dL (7-18); CALCIUM 8.8 mg/dL (8.5-10.1); CHLORIDE 106 mmol/L (98-107); CHOLESTEROL 271 mg/dL (50-200); CO2 28 mmol/L (21-32); CREATININE 1.2 mg/dL (0.55-1.3); GLUCOSE,RANDOM 91 mg/dL (74-106); HDL CHOLESTEROL 38 mg/dL (40-60); LDL CHOLESTEROL (ONLY SJRH) 187 mg/dL (5-100); POTASSIUM 4.1 mmol/L (3.5-5.1); SGOT/AST 22 U/L (15-37); SGPT/ALT 49 U/L (13-61); SODIUM 139 mmol/L (136-145); TOT PROT 7.7 g/dl (6.4-8.2); TRIGLYCERIDES 238 mg/dL (0-150)
[2020-03-26] MEDS ORDERED: ACETAMINOPHEN/CAFFEINE/BUTALBITAL 1 TAB ONE (18:35)
[2020-03-26] MEDS ORDERED: diazePAM CARPU-JECT 10 MG/2 ML DISP.SYRIN ONE (18:35)
[2020-03-26 22:54] VITALS: BP 126/75; PULSE 88; TEMP 98.5
--- NOTE | 2020-03-27 13:36 | EKG ---
Test Reason : Blood Pressure : / mmHG Vent. Rate : 077 BPM Atrial Rate : 077 BPM P-R Int : 150 ms QRS Dur : 084 ms QT Int : 378 ms P-R-T Axes : 066 046 037 degrees QTc Int : 427 ms NORMAL SINUS RHYTHM WITH SINUS ARRHYTHMIA POSSIBLE LEFT ATRIAL ENLARGEMENT BORDERLINE ECG NO PREVIOUS ECGS AVAILABLE Confirmed by STEVE DEE MD ([id number]) on 03/27/2020 1:36:27 PM Referred By: Confirmed By:STEVE DEE MD
== END 2020-03-26 20:05 | disposition home or self-care (01) ==
LOC: JER 15:09
PROC: 3E033NZ Introduction of Analgesics, Hypnotics, Sedatives into Peripheral Vein, Percutaneous Approach (ICD-10-PCS; principal; 2020-03-26)
DX: R20.9 Unspecified disturbances of skin sensation (principal)
CPT/HCPCS: 36415; 70450-TC; 80053; 80061; 81003; 82550; 82553; 83721; 84484; 85025; 85610; 85730; 86850; 86900; 86901; 93005; 93010; 99285-25

== ENCOUNTER 2020-04-28 11:14 | Emergency (ER) | payer OTHER ==
[2020-04-28 11:53] VITALS: TEMP 99; BMI 39.0
[2020-04-28] MEDS ORDERED: MECLIZINE HCL 25 MG TABLET (FP) PO ONE (12:50)
[2020-04-28] MEDS ORDERED: ACETAMINOPHEN 1000 MG/100 ML VIAL (NON FORMULARY) IVPB ONE (12:51)
[2020-04-28 14:31] LABS: BASO % 1.1 % (0-2.0); EOS % 1.6 % (0-4.5); HEMATOCRIT 43.6 % (35.4-49); HEMOGLOBIN 14.5 GM/dL (11.7-16.9); LYMPH % 34.4 % (8-40); MCH 26.5 pg (25.7-33.7); MCHC 33.3 g/dl (32.0-35.9); MEAN CELL VOLUME 79.4 fl (80-96); MEAN PLT VOLUME 8.6 fl (7.5-11.1); MONO % 8.6 % (3.8-10.2); NEUT % 54.3 % (42.8-82.8); PLATELET COUNT 214 K/MM3 (134-434); RBC 5.49 M/mm3 (4.00-5.60); RDW 13.7 % (11.9-15.9); WHITE BLOOD COUNT 5.1 K/mm3 (4.0-10.0)
[2020-04-28] MEDS ORDERED: ACETAMINOPHEN INJECTION 100 ML IVPB ONE (14:37)
[2020-04-28] MEDS ORDERED: MECLIZINE HCL 25 MG TABLET (FP) ONE (14:37)
[2020-04-28 14:41] LABS: INR 1.03 (0.83-1.09); PROTHROMBIN TIME (PATIENT) 12.4 SEC (9.7-13.0)
[2020-04-28 14:43] LABS: ACTIVATED PTT 32.4 SECONDS (25.2-36.5)
[2020-04-28 14:55] LABS: CHLORIDE 107 mmol/L (98-107); POTASSIUM 4.5 mmol/L (3.5-5.1); SODIUM 140 mmol/L (136-145)
[2020-04-28 14:57] LABS: CALCIUM 8.5 mg/dL (8.5-10.1)
[2020-04-28 14:58] LABS: ALBUMIN 3.9 g/dl (3.4-5.0); ANION GAP 3 MMOL/L (8-16); BLOOD UREA NITROGEN 10.5 mg/dL (7-18); CO2 30 mmol/L (21-32); GLUCOSE,RANDOM 83 mg/dL (74-106); MAGNESIUM 2.1 mg/dL (1.8-2.4)
[2020-04-28 15:00] LABS: SGOT/AST 20 U/L (15-37); SGPT/ALT 37 U/L (13-61)
[2020-04-28 15:01] LABS: CHOLESTEROL 220 mg/dL (50-200); CREATININE 1.2 mg/dL (0.55-1.3); PHOSPHOROUS 3.1 mg/dL (2.5-4.9); TRIGLYCERIDES 112 mg/dL (0-150)
[2020-04-28 15:02] LABS: BILIRUBIN,TOTAL 0.2 mg/dL (0.2-1); LDL CHOLESTEROL (ONLY SJRH) 166 mg/dL (5-100); TOT PROT 7.3 g/dl (6.4-8.2)
[2020-04-28 15:03] LABS: ALK PHOS 92 U/L (45-117); HDL CHOLESTEROL 36 mg/dL (40-60)
[2020-04-28 15:56] VITALS: BP 132/82; PULSE 58
== END 2020-04-28 16:10 | disposition home or self-care (01) ==
LOC: JER 11:14
PROC: 3E033NZ Introduction of Analgesics, Hypnotics, Sedatives into Peripheral Vein, Percutaneous Approach (ICD-10-PCS; principal; 2020-04-28)
DX: R20.2 Paresthesia of skin (principal); G43.909 Migraine, unspecified, not intractable, without status migrainosus
CPT/HCPCS: 36415; 70450-TC; 80053; 80061; 83721; 83735; 84100; 84484; 85025; 85610; 85730; 99285-25; J0131

== ENCOUNTER 2020-05-24 13:55 | Emergency (ER) | payer OTHER ==
[2020-05-24 14:02] VITALS: BMI 38.8
[2020-05-24 14:18] VITALS: TEMP 98.1
[2020-05-24] MEDS ORDERED: SODIUM CHLORIDE 1,000 ML IV STA (14:34)
[2020-05-24] MEDS ORDERED: ACETAMINOPHEN 1000 MG/100 ML VIAL (NON FORMULARY) IVPB ONE (14:34)
[2020-05-24] MEDS ORDERED: ACETAMINOPHEN INJECTION 100 ML IVPB ONE (15:10)
[2020-05-24 15:37] LABS: EOS % 1.4 % (0-4.5); HEMATOCRIT 44.5 % (35.4-49); HEMOGLOBIN 14.5 GM/dL (11.7-16.9); LYMPH % 35.5 % (8-40); MCHC 32.7 g/dl (32.0-35.9); MEAN CELL VOLUME 79.4 fl (80-96); MEAN PLT VOLUME 8.9 fl (7.5-11.1); MONO % 9.8 % (3.8-10.2); NEUT % 52.3 % (42.8-82.8); PLATELET COUNT 242 K/MM3 (134-434); RDW 14.1 % (11.9-15.9); WHITE BLOOD COUNT 6.3 K/mm3 (4.0-10.0)
[2020-05-24 15:58] LABS: POTASSIUM 3.8 mmol/L (3.5-5.1)
[2020-05-24 16:00] LABS: ALBUMIN 3.9 g/dl (3.4-5.0); CALCIUM 8.8 mg/dL (8.5-10.1)
[2020-05-24 16:01] LABS: BLOOD UREA NITROGEN 12.5 mg/dL (7-18)
[2020-05-24 16:03] LABS: CREATININE 1.2 mg/dL (0.55-1.3)
[2020-05-24 16:05] LABS: BILIRUBIN,TOTAL 0.5 mg/dL (0.2-1); TOT PROT 7.5 g/dl (6.4-8.2)
[2020-05-24 18:00] LABS: URINE APPEARANCE CLEAR; URINE BILIRUBIN NEGATIVE (NEGATIVE); URINE COLOR YELLOW; URINE GLUCOSE (UA) NEGATIVE (NEGATIVE); URINE KETONE NEGATIVE (NEGATIVE); URINE LEUK ESTERASE NEGATIVE (NEGATIVE); URINE NITRITE NEGATIVE (NEGATIVE); URINE PROTEIN NEGATIVE (NEGATIVE)
[2020-05-24 18:44] VITALS: BP 132/75; PULSE 82
== END 2020-05-24 18:40 | disposition home or self-care (01) ==
LOC: JER 13:55
PROC: 3E033NZ Introduction of Analgesics, Hypnotics, Sedatives into Peripheral Vein, Percutaneous Approach (ICD-10-PCS; principal; 2020-05-24)
PROC: 3E033GC Introduction of Other Therapeutic Substance into Peripheral Vein, Percutaneous Approach (ICD-10-PCS; 2020-05-24)
DX: S39.011A Strain of muscle, fascia and tendon of abdomen, initial encounter (principal)
CPT/HCPCS: 36415; 76705-TC; 80053; 81003; 83690; 85025; 99284-25; J0131

== ENCOUNTER 2021-06-06 22:51 | Emergency (ER) | payer OTHER ==
[2021-06-06 23:12] VITALS: BP 138/87; PULSE 105; TEMP 97.9; BMI 38.9
[2021-06-06] MEDS ORDERED: FAMOTIDINE 20 MG/50 ML IVPB 20 MG/50 ML MG IVPB ONE (23:50)
[2021-06-06] MEDS ORDERED: MAG HYDROX/AL HYDROX/SIMETH 30 ML UNIT-DOSE CUP PO ONE (23:51)
[2021-06-06] MEDS ORDERED: ONDANSETRON 4 MG/2 ML VIAL IVPUSH ONE (23:51)
[2021-06-06] MEDS ORDERED: ACETAMINOPHEN 1000 MG/100 ML VIAL IVPB ONE (23:52)
[2021-06-07] MEDS ORDERED: ACETAMINOPHEN INJECTION 100 ML IVPB ONE (00:10)
[2021-06-07] MEDS ORDERED: ONDANSETRON 4 MG/2 ML VIAL ONE (00:11)
[2021-06-07] MEDS ORDERED: MAG HYDROX/AL HYDROX/SIMETH 30 ML UNIT-DOSE CUP ONE (00:11)
[2021-06-07] MEDS ORDERED: FAMOTIDINE 20 MG/50 ML IVPB 20 MG/50 ML MG IVPB ONE (00:11)
[2021-06-07 00:31] LABS: BASO % 0.3 % (0-2.0); EOS % 0.7 % (0-4.5); HEMATOCRIT 43.1 % (35.4-49); HEMOGLOBIN 14.3 GM/dL (11.7-16.9); MCH 26.1 pg (25.7-33.7); MCHC 33.3 g/dl (32.0-35.9); MEAN CELL VOLUME 78.4 fl (80-96); MEAN PLT VOLUME 8.4 fl (7.5-11.1); PLATELET COUNT 212 10^3/uL (134-434); RBC 5.49 M/mm3 (4.00-5.60); RDW 13.9 % (11.9-15.9); WHITE BLOOD COUNT 6.3 K/mm3 (4.0-10.0)
[2021-06-07 00:40] LABS: INR 1.17 (0.83-1.09); PROTHROMBIN TIME (PATIENT) 13.1 SEC (9.7-13.0)
[2021-06-07 00:42] LABS: ACTIVATED PTT 31.4 SECONDS (25.2-36.5)
[2021-06-07 01:14] LABS: CHLORIDE 102 mmol/L (98-107); SODIUM 137 mmol/L (136-145)
[2021-06-07 01:15] LABS: CALCIUM 9.3 mg/dL (8.5-10.1)
[2021-06-07 01:16] LABS: ALBUMIN 3.8 g/dl (3.4-5.0); ANION GAP 8 MMOL/L (8-16); BLOOD UREA NITROGEN 11.2 mg/dL (7-18); CO2 27 mmol/L (21-32); GLUCOSE,RANDOM 101 mg/dL (74-106); LIPASE 60 U/L (73-393)
[2021-06-07 01:19] LABS: CREATININE 1.2 mg/dL (0.55-1.3); SGOT/AST 18 U/L (15-37); SGPT/ALT 40 U/L (13-61)
[2021-06-07 01:20] LABS: BILIRUBIN,TOTAL 0.3 mg/dL (0.2-1)
[2021-06-07 01:21] LABS: TOT PROT 7.9 g/dl (6.4-8.2)
[2021-06-07 01:22] LABS: ALK PHOS 80 U/L (45-117)
== END 2021-06-07 04:03 | disposition home or self-care (01) ==
LOC: JER 22:51
PROC: 3E033GC Introduction of Other Therapeutic Substance into Peripheral Vein, Percutaneous Approach (ICD-10-PCS; principal; 2021-06-06)
DX: U07.1 COVID-19 (principal)
CPT/HCPCS: 36415; 71045-TC-FY; 71275-TC; 74177-TC; 80053; 82550; 82553; 83690; 84484; 85025; 85379; 85610; 85730; 93005; 93010; 99285-25; C9803; J0131; Q9967; U0003; U0005

== ENCOUNTER 2022-06-27 12:56 | Emergency (ER) | payer OTHER ==
[2022-06-27 13:15] VITALS: BP 138/84; PULSE 104; RESP 19; TEMP 102.9; BMI 38.0
[2022-06-27] MEDS ORDERED: ONDANSETRON 4 MG/2 ML VIAL IVPUSH ONE (13:50)
[2022-06-27] MEDS ORDERED: ACETAMINOPHEN 1000 MG/100 ML BAG IVPB ONE (13:50)
[2022-06-27] MEDS ORDERED: LACTATED RINGERS SOLUTION 1000 ML INFUS.BAG IV ONE (13:51)
[2022-06-27] MEDS ORDERED: PANTOPRAZOLE SODIUM 40 MG VIAL IVPUSH ONE (13:52)
[2022-06-27] MEDS ORDERED: ACETAMINOPHEN INJECTION 100 ML IVPB ONE (13:59)
[2022-06-27] MEDS ORDERED: ONDANSETRON 4 MG/2 ML VIAL ONE (14:00)
[2022-06-27] MEDS ORDERED: PANTOPRAZOLE SODIUM 40 MG VIAL ONE (14:00)
[2022-06-27] MEDS ORDERED: MAG HYDROX/AL HYDROX/SIMETH -MYLANTA- ORAL SUSPENSION PO ONE (14:17)
[2022-06-27 14:56] LABS: BASO % 0.2 % (0-2.0); HEMATOCRIT 43.4 % (35.4-49); HEMOGLOBIN 14.5 GM/dL (11.7-16.9); LYMPH % 11.6 % (8-40); MCH 26.4 pg (25.7-33.7); MCHC 33.4 g/dl (32.0-35.9); MEAN CELL VOLUME 79.1 fl (80-96); MEAN PLT VOLUME 8.7 fl (7.5-11.1); MONO % 16.7 % (3.8-10.2); NEUT % 71.5 % (42.8-82.8); PLATELET COUNT 166 10^3/uL (134-434); RBC 5.49 M/mm3 (4.00-5.60); RDW 14.1 % (11.9-15.9); WHITE BLOOD COUNT 7.8 K/mm3 (4.0-10.0)
[2022-06-27 15:04] LABS: CALCIUM 8.4 mg/dL (8.5-10.1)
[2022-06-27 15:05] LABS: ALBUMIN 3.5 g/dl (3.4-5.0); BLOOD UREA NITROGEN 16.9 mg/dL (7-18)
[2022-06-27] MEDS ORDERED: MAG HYDROX/AL HYDROX/SIMETH 30 ML UNIT-DOSE CUP ONE (15:07)
[2022-06-27 15:08] LABS: CREATININE 1.5 mg/dL (0.55-1.3)
[2022-06-27 15:09] LABS: BILIRUBIN,TOTAL 0.4 mg/dL (0.2-1); TOT PROT 7.8 g/dl (6.4-8.2)
[2022-06-27] MEDS ORDERED: SODIUM CHLORIDE 0.9% 500 ML INFUS.BAG IV ONE (15:37)
[2022-06-27] MEDS ORDERED: METOCLOPRAMIDE HCL INJECTION 10 MG/2 ML VIAL IVPUSH ONE (15:37)
[2022-06-27] MEDS ORDERED: METOCLOPRAMIDE HCL INJECTION 10 MG/2 ML VIAL ONE (15:57)
[2022-06-27] MEDS ORDERED: KETOROLAC TROMETHAMINE 15 MG/ML VIAL IVPUSH ONE (16:31)
[2022-06-27] MEDS ORDERED: KETOROLAC TROMETHAMINE 15 MG/ML VIAL ONE (17:37)
== END 2022-06-27 19:29 | disposition home or self-care (01) ==
LOC: JER 12:56
PROC: 3E0333Z Introduction of Anti-inflammatory into Peripheral Vein, Percutaneous Approach (ICD-10-PCS; principal; 2022-06-27)
PROC: 3E0333Z Introduction of Anti-inflammatory into Peripheral Vein, Percutaneous Approach (ICD-10-PCS; 2022-06-27)
PROC: 3E033GC Introduction of Other Therapeutic Substance into Peripheral Vein, Percutaneous Approach (ICD-10-PCS; 2022-06-27)
PROC: 3E033GC Introduction of Other Therapeutic Substance into Peripheral Vein, Percutaneous Approach (ICD-10-PCS; 2022-06-27)
PROC: 3E033GC Introduction of Other Therapeutic Substance into Peripheral Vein, Percutaneous Approach (ICD-10-PCS; 2022-06-27)
DX: R10.32 Left lower quadrant pain (principal); R51.9 Headache, unspecified; R50.9 Fever, unspecified
CPT/HCPCS: 0241U-QW; 36415; 71046-TC-FY; 74176-TC; 80053; 83690; 85025; 93005; 93010; 99285-25

== ENCOUNTER 2022-07-01 14:28 | Inpatient (IN) | payer OTHER ==
[2022-07-01] MEDS ORDERED: SODIUM CHLORIDE 0.9% 500 ML INFUS.BAG IV ONE (16:42)
[2022-07-01] MEDS ORDERED: ACETAMINOPHEN 1000 MG/100 ML BAG IVPB ONE (16:42)
[2022-07-01] MEDS ORDERED: FAMOTIDINE 20 MG/50 ML IVPB 20 MG/50 ML MG IVPB ONE ×2 (16:43→17:07)
[2022-07-01] MEDS ORDERED: ACETAMINOPHEN INJECTION 100 ML IVPB ONE (17:07)
[2022-07-01 17:44] LABS: BASO % 0.5 % (0-2.0); CALCIUM 8.7 mg/dL (8.5-10.1); EOS % 1.3 % (0-4.5); HEMATOCRIT 42.6 % (35.4-49); HEMOGLOBIN 14.3 GM/dL (11.7-16.9); LYMPH % 26.4 % (8-40); MCH 26.3 pg (25.7-33.7); MCHC 33.6 g/dl (32.0-35.9); MEAN CELL VOLUME 78.2 fl (80-96); MEAN PLT VOLUME 8.7 fl (7.5-11.1); MONO % 18.1 % (3.8-10.2); NEUT % 53.7 % (42.8-82.8); PLATELET COUNT 232 10^3/uL (134-434); RBC 5.45 M/mm3 (4.00-5.60); RDW 14.2 % (11.9-15.9); WHITE BLOOD COUNT 8.9 K/mm3 (4.0-10.0)
[2022-07-01 17:45] LABS: ALBUMIN 3.6 g/dl (3.4-5.0); BLOOD UREA NITROGEN 13.8 mg/dL (7-18)
[2022-07-01 17:47] LABS: CREATININE 1.1 mg/dL (0.55-1.3)
[2022-07-01 17:49] LABS: BILIRUBIN,TOTAL 0.6 mg/dL (0.2-1); TOT PROT 7.7 g/dl (6.4-8.2)
[2022-07-02] MEDS ORDERED: PANTOPRAZOLE SODIUM 40 MG VIAL IVPUSH ONE (00:30)
[2022-07-02] MEDS ORDERED: SODIUM CHLORIDE 1,000 ML IV SCH (00:30)
[2022-07-02] MEDS ORDERED: FAMOTIDINE 20 MG/50 ML IVPB 20 MG/50 ML MG IVPB ONE ×2 (00:30→01:11)
[2022-07-02] MEDS ORDERED: PANTOPRAZOLE SODIUM 40 MG VIAL ONE (01:11)
[2022-07-02 05:59] VITALS: TEMP 98.6
[2022-07-02 08:29] VITALS: BP 142/88; PULSE 79; RESP 18
[2022-07-02 08:37] VITALS: BMI 35.6
[2022-07-02] MEDS ORDERED: ENOXAPARIN NA (PORCINE) 40 MG/0.4 ML DISP.SYRIN SQ SCH (10:00)
[2022-07-02 10:37] LABS: EPI CELLS 30 /uL (0-25.1); HYALINE CASTS 10 /uL (0-3.1); URINE APPEARANCE CLEAR; URINE BACTERIA 8 /uL (0-1359); URINE BILIRUBIN NEGATIVE (NEGATIVE); URINE COLOR YELLOW; URINE GLUCOSE (UA) NEGATIVE (NEGATIVE); URINE KETONE 3+ (NEGATIVE); URINE LEUK ESTERASE NEGATIVE (NEGATIVE); URINE NITRITE NEGATIVE (NEGATIVE); URINE PROTEIN 2+ (NEGATIVE)
[2022-07-02 11:02] LABS: URINE RBC 55.1 /uL (0-23.9); URINE WBC 81.4 /uL (0-25.8)
[2022-07-02 11:17] LABS: COCAINE, UR NEGATIVE (NEGATIVE); OPIATES, URI NEGATIVE (NEGATIVE)
[2022-07-02 11:18] LABS: URINE AMPHETAMINES NEGATIVE (NEGATIVE)
[2022-07-02 11:54] LABS: METHADONE, UR NEGATIVE (NEGATIVE); PHENCYCLIDINE,URINE NEGATIVE (NEGATIVE); URINE BARBITURATES NEGATIVE (NEGATIVE); URINE BENZODIAZEPINES NEGATIVE (NEGATIVE)
== END 2022-07-02 11:04 | disposition home or self-care (01) | DRG 392 ==
LOC: JER 14:28 → JERBED 21:18
PROVIDERS: ADMIT Internal Medicine; ATTEND Nurse Practitioner Acute Care
DX: R13.10 Dysphagia, unspecified (principal); R19.7 Diarrhea, unspecified; K29.50 Unspecified chronic gastritis without bleeding; K22.70 Barrett's esophagus without dysplasia; Z28.310 Unvaccinated for COVID-19; Z86.16 Personal history of COVID-19; R11.0 Nausea; R50.9 Fever, unspecified; R10.13 Epigastric pain
CPT/HCPCS: 0241U-QW; 36415; 71046-TC-FY; 76705-TC; 80053; 80307; 81003; 83690; 85025; 87045; 87046; 87086; 87324; 87425; 87449; 87798; 93005; 93010; 99285-25